=== PATIENT | male | born 1940 | race Caucasian/White ===

== ENCOUNTER 2018-07-10 07:31 | Day surgery (SDC) | payer MEDICARE, SELFPAY ==
[2018-06-05 15:09] VITALS: BMI 27.3
--- NOTE | 2018-06-29 12:28 | EKG12_ITS ---
Test Reason : PRE OP Blood Pressure : / mmHG Vent. Rate : 054 BPM Atrial Rate : 054 BPM P-R Int : 190 ms QRS Dur : 098 ms QT Int : 416 ms P-R-T Axes : 051 031 056 degrees QTc Int : 394 ms Sinus bradycardia Otherwise normal ECG Confirmed by LINDA ALEMAN, JEWELS ([id number]), proposal editor NOEL WALLACE ([id number]) on 07/03/2018 10:13:35 AM Referred By: Jordi Greenberg Confirmed By:JEWELS MCKEON MD
[2018-06-29 12:48] LABS: Hematocrit 39.8 % (40-54); Hemoglobin 12.9 g/dl (13.0-16.5); Mean Corp Hgb Conc 32.4 g/gl (32-36); Mean Corpuscular Hgb 30.6 pg (27.0-32.0); Mean Corpuscular Volume 94.5 fL (80-94); Mean Platelet Vol. 10.9 fl (6.2-12.0); Platelet Count 215 K/mm3 (150-450); RBC Distribution Width CV 13.2 % (11.6-14.6); RBC Distribution Width SD 45.7 fl (35.1-43.9); Red Blood Count 4.21 M/mm3 (4.6-6.2); White Blood Count 6.1 K/mm3 (4.4-11.0)
[2018-06-29 12:54] LABS: Scan Indicated on CBC? Y/N NO
[2018-06-29 13:11] LABS: Anion Gap 9 (5-15); BUN 17 mg/dL (7-18); BUN/Creat Ratio 11.6 RATIO (10-20); Calcium,Total 9.3 mg/dL (8.5-10.1); Chloride 105 mmol/L (98-107); Creatinine, Serum 1.47 mg/dL (0.70-1.30); EST Glomerular Filtration Rate 50 mL/min (>60); Est Glom Filt Rate - Afr Amer 60 mL/min (>60); Glucose 94 mg/dL (74-106); Potassium 4.5 mmol/L (3.5-5.1); Sodium Level 141 mmol/L (136-145)
[2018-07-10 07:58] VITALS: BP 150/84; PULSE 66; RESP 18; TEMP 37.1; O2SAT 100; BMI 27.3
[2018-07-10] MEDS: Cefazolin 2 GM in 0.9% Normal Saline 100 ML IV (10:15)
[2018-07-10] MEDS: Bupiv/Epi 0.5% Mpf 30 ML Vial (10:40)
--- NOTE | 2018-07-10 11:13 | PCM.IMDPSTOP ---
Immediate Post-Op Note Date of Procedure: 07/10/18 Primary Surgeon/Physician: Jordi Greenberg, entry level staff accountant: Maisha Beasley Pre-Operative Diagnosis: SAIS, AC Arthrosis, bicipital tendinosus, possible rotator cuff tear left Post-Operative Diagnosis: SAIS, AC Arthrosisis, bicipital tendinopathy, less than 25% undersurface rotator cuff tear left Surgery/Procedure Performed:: ASD, Muford procedure and biceps tenotomy Description of Surgical Findings:: see op note Estimated Blood Loss: minimal Specimen's removed: none Type of Anesthesia:: General/Regional ASA Class: ASA2 Mod Systematic Disease - Admit VTE Documentation VTE Present on Admission: No VTE Mechan Device Prophylaxis: SCD's, Thigh High MINDI Hose VTE Pharm Prophylaxis ordered?: No Reason prophylaxis not ordered:: Treatment Not Indicated
--- NOTE | 2018-07-10 11:16 | OP.PN_ITS ---
Immediate Post-Op Note Date of Procedure: 07/10/18 Primary Surgeon/Physician: Jordi Greenberg, electric trucker: Maisha Beasley Pre-Operative Diagnosis: SAIS, AC Arthrosis, bicipital tendinosus, possible rotator cuff tear left Post-Operative Diagnosis: SAIS, AC Arthrosisis, bicipital tendinopathy, less than 25% undersurface rotator cuff tear left Surgery/Procedure Performed:: ASD, Muford procedure and biceps tenotomy Description of Surgical Findings:: see op note Estimated Blood Loss: minimal Specimen's removed: none Type of Anesthesia:: General/Regional ASA Class: ASA2 Mod Systematic Disease - Admit VTE Documentation VTE Present on Admission: No VTE Mechan Device Prophylaxis: SCD's, Thigh High MINDI Hose VTE Pharm Prophylaxis ordered?: No Reason prophylaxis not ordered:: Treatment Not Indicated
[2018-07-10 11:28] VITALS: BP 150/84; BP 171/94; PULSE 75; RESP 16; TEMP 36.1; O2SAT 97
[2018-07-10 11:31] VITALS: BP 150/84; BP 167/89; PULSE 74; RESP 18; O2SAT 96
[2018-07-10 11:45] VITALS: BP 150/84; BP 176/88; PULSE 75; RESP 16; O2SAT 99
[2018-07-10 11:56] VITALS: BP 150/84; BP 169/93; PULSE 75; RESP 18; TEMP 36.3; O2SAT 95
[2018-07-10] MEDS: Ketorolac 15 MG/ML Vial IV (12:11)
[2018-07-10] MEDS: traMADol 50 MG Tablet 100 MG PO (12:24)
--- NOTE | 2018-07-10 12:58 | PCM.OP.BLANK ---
Operative Report Date of Procedure: 07/10/18 Primary Surgeon/Physician: Jordi Greenberg exhaust emissions inspector: NETTA Arreguin exhaust emissions inspector: Pre-Operative Diagnosis: SAIS, AC arthrosis, bicipital tendinopathy with possible rotator cuff tear left shoulder Post-Operative Diagnosis: Same with less than 20% undersurface rotator cuff tear Surgery/Procedure Performed: ASD, Huma, biceps tenotomy left shoulder Estimated Blood Loss: minimal Specimen's Removed: none Type of Anesthesia: General and regional ASA Class: 2 Implants: [] Surgical Indications: [ ] Procedure Description: Patient was greeted in the preoperative area. Their [left ] shoulder was marked with surgical marker. Preoperative antibiotics were administered. The patient was then taken to the operating suite in a stable condition. After adequate anesthesia was obtained and it was secured there placed in standard beachchair position. All bony prominences were well-padded her head was secured in a beachchair positioner. The arm was then prepped and draped in the usual sterile fashion. Surgical timeout was performed surgery was commenced. Standard posterior viewing portal was made and 30? arthroscope was introduced into the glenohumeral joint. Anterior portal was made under direct visualization. Extensive debridement of the anterior capsule was performed evaluation of the shoulder itself was performed with the following findings: [There was severe tendinopathy of the biceps tendon. The rotator cuff was intact with a less then 20% undersurface delamination. A shaver was used through the anterior portal to perform a biceps tenotomy. The humeral head and glenoid were in good condition without significant arthrosis. ]. The subacromial space was then entered and extensive debridement of the subacromial bursa was performed. The undersurface of the acromion was then debrided with a thermal wand. This did reveal a type II acromion. Subacromial decompression was then performed with a arthroscopic bur from anterolateral posteromedial to create a type I acromion. When this was complete the wand was then utilized to debride the acromioclavicular joint. A distal clavicle resection was then performed removing approximately 5 mm of distal clavicle not violating the superior acromioclavicular ligament. This was complete attention was then turned to the rotator cuff [The rotator cuff was noted to be intact from the bursal surface ]. At this point the arthroscopy instruments ans fluid were removed and the arthroscopy portal wounds were closed with interrupted sutures of 4-0 nylon. A sterile dressing and sling were applied. The patient was extubated and sent to PACU in stable condition.
[2018-07-10 13:25] VITALS: BP 150/84
--- OUTSIDE RECORDS SUMMARY | 2018-09-11 15:11 | XMS RPT_ITS ---
:1940 Author Organization [facility] Care Team Providers Name Role Phone Benja Quesada Attending Unavailable Aga Sylvester Referring Unavailable Jordi Greenberg Attending Unavailable Jordi Greenberg Referring Unavailable Aga Sylvester CARDROOM MANAGER-[facility] Unavailable Rich Mckeon Attending Unavailable Jordi Greenberg Referring Unavailable PROBLEMS PROBLEMS DATE TYPE CONDITION / CODE ATTENDING STATUS SOURCE 07/14/2018 Unknown R00.1 - Rich Mckeon Active [place] Bradycardia, Community unspecified / Hospital R00.1(ICD-10) Repository 06/06/2018 Unknown L02.212 - CebulBenja Active [place] Cutaneous abscess Community of back [any Hospital part, except Repository buttock] / L02.212(ICD-10) 06/06/2018 Unknown L72.3 - Sebaceous CebulBenja Active [place] cyst / Community L72.3(ICD-10) Hospital Repository PROCEDURES PROCEDURES No Procedure Records FoundRESULTS RESULTS OPERATIVE REPORT Observed: 07/10/2018 Status: F Source: [place] 1:08 PM [facility] HOSPITAL REPOSITORY [facility] Medical Records Department [address] [place] [address] Operative Report 07/10/18 1258 MR#: [id number] Acct: [id number] Name: CHHAYA VILLA Rep #: [id number] : 1940 78 From: Jordi Greenberg DO PCP: Aga Melendrez Status: REG SDC Y Location: [facility] Operative Report Date of Procedure: 07/10/18 Primary Surgeon/Physician: Jordi Greenberg band scroll saw operator: NETTA Arreguin band scroll saw operator: Pre-Operative Diagnosis: SAIS, AC arthrosis, bicipital tendinopathy with possible rotator cuff tear left shoulder Post-Operative Diagnosis: Same with less than 20% undersurface rotator cuff tear Surgery/Procedure Performed: ASD, Huma, biceps tenotomy left shoulder Estimated Blood Loss: minimal Specimen's Removed: none Type of Anesthesia: General and regional ASA Class: 2 Implants: [] Surgical Indications: [ ] Procedure Description: Patient was greeted in the preoperative area. Their [left ] shoulder was marked with surgical marker. Preoperative antibiotics were administered. The patient was then taken to the operating suite in a stable condition. After adequate anesthesia was obtained and it was secured there placed in standard beachchair position. All bony prominences were well-padded her head was secured in a beachchair positioner. The arm was then prepped and draped in the usual sterile fashion. Surgical timeout was performed surgery was commenced. Standard posterior viewing portal was made and 30 arthroscope was introduced into the glenohumeral joint. Anterior portal was made under direct visualization. Extensive debridement of the anterior capsule was performed evaluation of the shoulder itself was performed with the following findings: [There was severe tendinopathy of the biceps tendon. The rotator cuff was intact with a less then 20% undersurface delamination. A shaver was used through the anterior portal to perform a biceps tenotomy. The humeral head and glenoid were in good condition without significant arthrosis. ]. The subacromial space was then entered and extensive debridement of the subacromial bursa was performed. The undersurface of the acromion was then debrided with a thermal wand. This did reveal a type II acromion. Subacromial decompression was then performed with a arthroscopic bur from anterolateral posteromedial to create a type I acromion. When this was complete the wand was then utilized to debride the acromioclavicular joint. A distal clavicle resection was then performed removing approximately 5 mm of distal clavicle not violating the superior acromioclavicular ligament. This was complete attention was then turned to the rotator cuff [The rotator cuff was noted to be intact from the bursal surface ]. At this point the arthroscopy instruments ans fluid were removed and the arthroscopy portal wounds were closed with interrupted sutures of 4-0 nylon. A sterile dressing and sling were applied. The patient was extubated and sent to PACU in stable condition. 07/10/18 1308 <Electronically signed by Jordi Greenberg DO> Date Jordi Greenberg DO CC: Aga SHENC; Jordi Greenberg DO Signed 12 LEAD ELECTROCARDIOGRAM Observed: 07/03/2018 Status: F Source: [place] 10:13 AM [facility] REPOSITORY [facility] Cardiovascular Services [address] [place] [address] [place] [address] 12 Lead EKG 06/29/18 1240 MR#: [id number] Acct: [id number] Name: CHHAYA VILLA Rep #: [id number] : 1940 78 From: Rich Mckeon MD Attending Dr: Jordi Greenberg DO Status: PRE SDC Ordering Dr: Jordi Greenberg DO Date: 06/29/18 Location: [facility] Sex: M C Admitted: Test Reason : PRE OP Blood Pressure : / mmHG Vent. Rate : 054 BPM Atrial Rate : 054 BPM P-R Int : 190 ms QRS Dur : 098 ms QT Int : 416 ms P-R-T Axes : 051 031 056 degrees QTc Int : 394 ms Sinus bradycardia Otherwise normal ECG Confirmed by RICH MCKEON MD ([id number]), clinical editor NOEL WALLACE ([id number]) on 07/03/2018 10:13:35 AM Referred By: Jordi Greenberg Confirmed By:RICH MCKEON MD 07/03/18 1013 Date Rich Mckeon MD CC: Aga PENA; Jordi Greenberg DO Signed CBC-COMPLETE BLOOD CNT Collected: 06/29/2018 Status: F Source: [place] NO DIFF 12:18 PM [facility] REPOSITORY TYPE CODE TESTS RESULT OUT OF RANGE REFERENCE UNITS LAB L100.1000 4.4-11.0 K/mm3 Normal WBC 6.1 LAB L100.1200 4.6-6.2 M/mm3 Low RBC 4.21 LAB L100.1300 13.0-16.5 g/dl Low HGB 12.9 LAB L100.1400 40-54 % Low HCT 39.8 LAB L100.1500 80-94 fL High MCV 94.5 LAB L100.1600 27.0-32.0 pg Normal MCH 30.6 LAB L100.1700 32-36 g/gl Normal MCHC 32.4 LAB L100.1810 11.6-14.6 % Normal RDW CV 13.2 LAB L100.1820 35.1-43.9 fl High RDW SD 45.7 LAB L100.1900 150-450 K/mm3 Normal PLT 215 LAB L100.2000 6.2-12.0 fl Normal MPV 10.9 Performed By: #### L100.0500 #### [facility] [address] [place], [address] BASIC METABOLIC Collected: 06/29/2018 Status: F Source: [place] PROFILE (BMP) 12:18 PM [facility] REPOSITORY TYPE CODE TESTS RESULT OUT OF RANGE REFERENCE UNITS LAB L501.0100 74-106 mg/dL Normal GLU 94 Result Comment: Please note revised GLUCOSE reference range effective 2017. LAB L501.1000 7-18 mg/dL Normal BUN 17 LAB L501.1100 0.70-1.30 mg/dL High CREAT,SERUM 1.47 Result Comment: The validity of the calculated GFR AND GFRAA in patients over 70 years has not been determined. Clinical correlation is essential. LAB L501.1110 >60 mL/min Low EST GFR 50 Result Comment: Non- GFR Calc LAB L501.1115 >60 mL/min Normal EST GFR - AA 60 Result Comment: GFR Calc LAB L501.1300 10-20 RATIO Normal BUN/CRE 11.6 LAB L501.2200 8.5-10.1 mg/dL CA Normal 9.3 LAB L501.5300 136-145 mmol/L NA Normal 141 LAB L501.5600 3.5-5.1 mmol/L K Normal 4.5 LAB L501.5900 98-107 mmol/L CL Normal 105 LAB L501.6100 21.0-32.0 mmol/L Normal CO2 27.0 LAB L501.6200 5-15 Normal GAP 9 Performed By: #### L500.2500 #### [facility] [address] [place], [address] SURGERY VISIT REPORT Observed: 06/05/2018 Status: F Source: [place] 4:50 PM [facility] REPOSITORY [facility] [address] [place] [address] OFFICE VISIT Date of Service: 06/05/18 MR#: [id number] Acct: [id number] Name: CHHAYA VILLA Rep #: [id number] : 1940 Provider: Benja Quesada MD Age/Sex: 77/M Location: [facility] Status: Signed Intake Vital Signs06/05/18 Height 6 ft 1 in 06/05/18 Weight: 207 lb Intake Visit Reasons: CYST R MID-BACK Camp Program Director Required: No Is patient in pain?: No Allergies hydrocodone Allergy (Intermediate, Verified 06/05/18 15:11) anxiety reaction oxycodone Allergy (Intermediate, Verified 06/05/18 15:11) anxiety reaction Medications albuterol sulfate HFA 90 mcg/actuation aerosol inhaler 2 puff INHALATION Q6H PRN 06/05/18 [History Confirmed 06/05/18] fluticasone 220 mcg/actuation HFA aerosol inhaler 1 puff INHALATION BID 06/05/18 [History Confirmed 06/05/18] tadalafil 10 mg tablet 10 mg PO DAILY PRN 06/05/18 [History Confirmed 06/05/18] PFSH Medical History Sebaceous cyst (Acute) Sebaceous cyst (Acute) Surgical History History of colonoscopy (Acute) History of laparoscopic cholecystectomy (Acute) History of left hip replacement (Acute) History of left knee replacement (Acute) History of right hip replacement (Acute) History of right knee joint replacement (Acute) Family History Mother Asthma Father Cancer Leukemia Social History Smoking Status: Former smoker alcohol intake: current alcohol intake frequency: 0-2 drinks per day details: scotch/soda every evening substance use type: does not use HPI HPI HPI: CHHAYA VILLA, is a 77 M who presents to the office today for surgical consultation regarding infected sebaceous cyst right mid back. After review of the situation despite appropriate antibiotic therapy the patient appears to have persistent infection. I recommended to him that we incise and drain the area. Please refer to my procedure note. ROS General General: No weight change, appetite, fatigue, colon cancer, breast cancer or weakness HEENT HEENT: No difficulty swallowing, eye injury, eye surgery, swollen glands or hoarseness Endo Endocrine: No thyroid disease, diabetes mellitus, thyroid cancer, Hair loss, heat intolerance or cold intolerance Skin Skin: No rash or changing moles Breast Breast: No left breast lump, right breast lump, nipple discharge, breast pain, abnormal mammogram, abnormal US or breast enlargement Musc Musculoskeletal: Yes arthritis; no back problems, rheumatoid arthritis, gout or joint pain Cardio Cardiovascular: No murmur, pacemaker, heart disease, atrial fibrillation, high blood pressure, heart attack, heart stent, palpitations, shortness of breat with exertion or chest pain Psych Psychiatric: No depression, anxiety or hearing voices Resp Respiratory: No shortness of breath, No sleep apnea, No cough, No COPD, Yes asthma, No emphysema, No wheezing Gastro Gastrointestinal: No abdominal pain, No nausea or vomiting, No diarrhea, No constipation, No blood in stool, No acid reflux, No hemorrhoids, No ulcers, No gallbladder problem, No black,tarry stools Reed Hematologic: No blood thinners, No blood disorders, No bleeding, No anemia, No blood clots Neuro Neurologic: No system reviewed and no additional complaints, except as docu, No as per HPI, No abnormal walking, No abnormal hearing, No abnormal movements, No abnormal speech, No behavioral changes, No burning sensations, No confusion, No seizure-like activity, No unsteadiness, No dizziness, No localized weakness, No frequent falls, No headache(s), No lack of coordination, No loss of vision, No memory loss, No numbness, No other visual disturbances, No radiating pain, No restless legs, No sensory deficit, No fainting, No tingling, No tremor(s), No weakness, No other Exam Chest Breast Palpation: No nipple discharge Cardio Heart Sounds: no murmurs Office Procedures Incision and Drainage Provider Documentation Provider Documentation: Procedure note Incision and drainage of infected sebaceous cyst right mid back Timeout and informed consent was obtained. The patient was taken to procedure room placed prone on the table. He has erythema and tenderness to touch of an infected sebaceous cyst right upper mid back. The cystic area measures approximately 2 cm in diameter. The erythema extends for another couple centimeters. The area was prepped with Betadine. 1% lidocaine mixed 50- 50 with 0.5% Marcaine was used as a local anesthetic. A total of 8 cc was used. A 11 blade was used to make an incision. Using sharp and blunt dissection I was able to identify the cyst lining and with careful dissection was able to sharply excise the vast majority of that lining. I did not see any residual him. The cavity appeared to measure approximately 1.5 x 1 cm. I packed that with 1/4 inch new gauze. I instructed the on removal of the new gauze tomorrow. We applied dry cover dressing. I believe that this will help his area resolve do not feel that additional antibiotic is required at this time. Benja Queasda M.D., F.A.C.S. Alert Brim Curler Alert Billing: Yes Incision and Drainage 27518 Abscess Simp/Single Procedure Time Out Time Out Informed consent given: Yes Consent signed: Yes Time out checklist: patient, procedure, site marked/identified, positioning of patient, supplies available, allergies confirmed, team agrees on procedure Time out staff in room: Yes Time out verified: Yes Time out date: 06/05/18 Time out time: 15:28 Assessment AND Plan Problems 1. Sebaceous cyst L72.3 Plan Findings of an infected sebaceous cyst right upper mid back successfully incised and drained. A new gauze wick will be removed tomorrow. He may shower. I anticipate gradual but hopeful complete resolution. The patient will have an office follow- up in approximately 6-8 weeks time. At this point I have a lower degree of suspicion that he will require a secondary elliptical excision procedure CC: Aga Quesada M.D., F.A.C.S. Orders Orders: Coding Level of Care Code Attention Svetlana Diagnoses Sebaceous cyst L72.3 Additional Codes Incision and Drainage - I AND D: 75687 Abscess Simp/Single (01108) 06/05/18 1650 <Electronically signed by Benja Quesada MD> Date Benja Quesada MD Cosigner Signature: Date (if applicable) CC: Aga Sylvester CARDROOM MANAGER-C ALLERGIES ALLERGIES DATE TYPE / CODE NAME / CODE REACTION SEVERITY SOURCE 06/30/2018 Drug hydrocodone/ anxiety reaction [facility] Allergy/4160 [id number](R Hospital 52787(SNOMED XNORM) Repository CT) 06/30/2018 Drug oxycodone/F0 anxiety reaction [facility] Allergy/4160 [id number](RX Hospital 22656(SNOMED ORM) Repository CT) ENCOUNTERS ENCOUNTERS ADMIT/DISCHARGE ACCOUNT ADMITTING ENCOUNTER LOCATION SOURCE NUMBER CLASS 07/10/2018/ [id number] Ambulatory [place] [facility] 6 [facility] ing:SDCRoom: Repository AC-TBA 06/29/2018 [id number] Ambulatory BMSBuilding:W [place] 8 [facility] Repository 06/05/2018/ [id number] Ambulatory BMSBuilding:B [place] 8 4 [facility] Repository PAYERS PAYERS ENCOUNTER GUARANTOR PAYER SUBSCRIBER SOURCE 07/10/2018 CHHAYA Ahmadi Primary CHH[place]A Daiana [place] [id number] [facility] Community [id number]: Repository [address]Vwb: ([phone] [id number] [phone] () Date:[id number] [address] [place] [id number]: 07/10/2018 Secondary NOT GIVENUNK [place] Insurance:SELF PAY [facility] Number: Effective Repository Date:2018-06-16 06/29/2018 CHHAYA Ahmadi Primary CHHAYA [place] [id number] [facility]: Community ARDEL MEDICAREPolicy [id number] Number: Repository [address]Wcs: [id number] [phone] () Date:[id number] [place], [place] [address]DJ: 06/29/2018 Secondary NOT GIVENUNK [place] Insurance:SELF PAY [facility] Number: Effective Repository Date:2018-06-29 06/05/2018 CHHAYA Ahmadi Primary CHHAYA [place] [id number] [facility]: Community ARDEL MEDICAREPolicy [id number] Number: [place]ository [place] [id number]: [id number] Date:[id number] [address] () [address] [place] [address]EY: 06/05/2018 Secondary NOT GIVENUNK [place] Insurance:SELF PAY [facility] Number: Effective Repository Date:2018-06-02
== END 2018-07-10 13:34 | disposition home or self-care (01) ==
LOC: SDC 07:40 → AC 07:40 → ACINP 10:48
PROVIDERS: Physician Assistant; Family Provider Nurse Practitioner Primary Care; PCP Nurse Practitioner Primary Care; Referring Provider Orthopaedic Surgery; Visit Provider Orthopaedic Surgery
PROC: (CPT 29827; principal; 2018-07-10 09:25)
DX: S46.012D Strain of muscle(s) and tendon(s) of the rotator cuff of left shoulder, subsequent encounter (principal); M19.012 Primary osteoarthritis, left shoulder; J45.909 Unspecified asthma, uncomplicated; Z87.891 Personal history of nicotine dependence
CPT/HCPCS: 01630; 29823; 29824; 64450; 36415; 80048; 85027; 93005; J7120; J2405

== ENCOUNTER 2022-10-19 06:23 | Day surgery (SDC) | payer MEDICARE, SELFPAY ==
[2022-10-19 06:55] VITALS: BP 123/78; PULSE 90; RESP 18; TEMP 36.4; O2SAT 99; BMI 27.0
--- NOTE | 2022-10-19 06:55 | PCM.HP.BLA ---
History and Physical Date of Admission: 10/19/[address] Benja Quesada MD on 09/29/22 at 1056 Intake Chief Complaint: Anemia and Chronic Diarrhea Allergies hydrocodone Adverse Reaction (Intermediate, Verified 09/14/22 14:06) anxiety reactionoxycodone Adverse Reaction (Intermediate, Verified 09/14/22 14:06) anxiety reaction Medications albuterol sulfate 90 mcg/actuation aerosol inhaler (ProAir HFA) 2 puff inhalation Q6H PRN Sob &/Or Wheezing 06/05/18 [History Confirmed 09/14/22] fluticasone propionate 220 mcg/actuation HFA aerosol inhaler (Flovent HFA) 1 puff inhalation BID PRN Sob &/Or Wheezing 06/05/18 [History Confirmed 09/14/22] cholecalciferol (vitamin D3) 25 mcg (1,000 unit) capsule 25 mcg PO DAILY 09/14/22 [History Confirmed 09/14/22] colestipol 5 gram oral packet 5 g PO DAILY 09/14/22 [History Confirmed 09/14/22] escitalopram oxalate 20 mg tablet 20 mg PO DAILY 09/14/22 [History Confirmed 09/14/22] propranolol 40 mg tablet 40 mg PO DAILY 09/14/22 [History Confirmed 09/14/22] tamsulosin 0.4 mg capsule 0.4 mg PO DAILY 09/14/22 [History Confirmed 09/14/22] vitamin B complex 1 cap PO DAILY 09/14/22 [History Confirmed 09/14/22] Assessment and Plan Assessment and Plan (1) Anemia: ?Status:?Acute (2) Chronic diarrhea: ?Status:?Chronic (3) Chronic kidney disease: ?Status:?Chronic Plan September 29, 2022 I now have results from [facility] dated September 21, 2022 a myocardial stress test.? The test was noted to be technically difficult.? Impression was inferior fixed defect possibly representing a prior infarction.? No clear evidence of ischemia.? Normal left ventricular ejection fraction of 65%.? The ECG portion of the exam was negative for ischemia.? The patient did have a hypertensive response to exercise with a maximum blood pressure of 208/104. Benja Quesada M.D., F.A.C.S. 09/29/22 1057 <Electronically signed by Benja Quesada MD> Date Benja Quesada MD cc: ? BECKY Artssepifanio Sylvester ~* Signed Intake Vital Signs ? 09/14/2313:03 Height 6 ft 1 in Weight: 216 lb 2 oz BMI 28.5 BP 162/80 H Blood Pressure Location Rt brachial Position Sitting Respiration 18 Pulse 56 L Pulse Source Monitor Pulse Oximetry (%) 99 Oxygen Delivery Method room air Intake Visit Reasons:?ANEMIA & CHRONIC DIARRHEA Chief Complaint: Anemia and Chronic Diarrhea [employer] Sales[employer] Required: No Accompanied by: Is patient in pain?: No Allergies hydrocodone Adverse Reaction (Intermediate, Verified 09/14/22 14:06) anxiety reactionoxycodone Adverse Reaction (Intermediate, Verified 09/14/22 14:06) anxiety reaction Medications albuterol sulfate 90 mcg/actuation aerosol inhaler (ProAir HFA) 2 puff inhalation Q6H PRN Sob &/Or Wheezing 06/05/18 [History Confirmed 09/14/22] fluticasone propionate 220 mcg/actuation HFA aerosol inhaler (Flovent HFA) 1 puff inhalation BID PRN Sob &/Or Wheezing 06/05/18 [History Confirmed 09/14/22] cholecalciferol (vitamin D3) 25 mcg (1,000 unit) capsule 25 mcg PO DAILY 09/14/22 [History Confirmed 09/14/22] colestipol 5 gram oral packet 5 g PO DAILY 09/14/22 [History Confirmed 09/14/22] escitalopram oxalate 20 mg tablet 20 mg PO DAILY 09/14/22 [History Confirmed 09/14/22] propranolol 40 mg tablet 40 mg PO DAILY 09/14/22 [History Confirmed 09/14/22] tamsulosin 0.4 mg capsule 0.4 mg PO DAILY 09/14/22 [History Confirmed 09/14/22] vitamin B complex 1 cap PO DAILY 09/14/22 [History Confirmed 09/14/22] PFSH Medical History?(Updated 09/14/22 @ 15:[address] Benja Quesada MD) Anemia Anxiety Arthritis Asthma Back problem Chronic diarrhea Chronic kidney disease Fatigue History of colon polyps Hypertension Sebaceous cyst Sebaceous cyst Surgical History? History of colonoscopy History of laparoscopic cholecystectomy History of left hip replacement History of left knee replacement History of right hip replacement History of right knee joint replacement Family History?(Updated 09/14/22 @ 14:02 by Hannah Persaud) Mother Asthma DiabetesFather Cancer ?? ? LeukemiaAunt Diabetes Social History? Smoking Status:? Former smoker alcohol intake:? current alcohol intake frequency: 0-2 drinks per day details:? scotch/soda every evening substance use type:? does not use HPI HPI HPI: 82-year-old gentleman is referred by Aga Sylvester CNP and a written copy of my surgical consult recommendations will return to her.? As of August 25, 2022 the patient had a white blood cell count of 6.5 with a hemoglobin of 12 and hematocrit of 35.1 and a platelet count of 234,000.? Glucose was 84 with a BUN of 33 and a creatinine of 1.77.? Iron level was 111 and ferritin 241.? GFR is 45.? There is concern that the patient has chronic diarrhea postcholecystectomy.? It is controlled with colestipol.? I have previously assisted him on June 25, 2016 with a colonoscopy and removal of a polyp in the mid transverse colon in the mid sigmoid colon.? Extensive diverticular disease of the descending sigmoid colon was identified.? Pathology showed a fragment of colonic mucosa that was polypoid and the secondary was hyperplastic. The patient is being referred because of anemia fatigue and diarrhea.? He thinks the diarrhea dictates back to his cholecystectomy.? He has been treated with colestipol but he finds it very difficult to manage which she is attempted over many years.? States he either continues to have diarrhea or ends up with 3 days of no bowel movement. He did recently 6 weeks ago have COVID-19.? His primary complaint in addition to the diarrhea is fatigue. ROS General General: Yes fatigue; No weight change, appetite, colon cancer, breast cancer or weakness HEENT HEENT: No difficulty swallowing, eye injury, eye surgery, swollen glands or hoarseness Endo Endocrine: No thyroid disease, diabetes mellitus, thyroid cancer, Hair loss, heat intolerance or cold intolerance Skin Skin: No rash or changing moles Breast Breast: No left breast lump, right breast lump, nipple discharge, breast pain, abnormal mammogram, abnormal US or breast enlargement Musc Musculoskeletal: Yes back problems and arthritis; No rheumatoid arthritis, gout or joint pain Cardio Cardiovascular: Yes high blood pressure; No murmur, pacemaker, heart disease, atrial fibrillation, heart attack, heart stent, palpitations, shortness of breat with exertion or chest pain Psych Psychiatric: Yes anxiety; No depression or hearing voices Resp Respiratory: Yes shortness of breath, No sleep apnea, Yes cough, No COPD, Yes asthma, No emphysema and No wheezing Gastro Gastrointestinal: No abdominal pain, Yes nausea or vomiting, Yes diarrhea, No constipation, No blood in stool, No acid reflux, No hemorrhoids, No ulcers, Yes gallbladder problem and No black,tarry stools Reed Hematologic: No blood thinners, No blood disorders, No bleeding, No anemia and No blood clots Neuro Neurologic: No system reviewed and no additional complaints, except as documented, No as per HPI, No abnormal gait, No abnormal hearing, No abnormal movements, No abnormal speech, No behavioral changes, No burning sensations, No confusion, No convulsions, No disequilibrium, No dizziness, No localized weakness, No frequent falls, No headache(s), No lack of coordination, No loss of vision, No memory loss, No numbness, No other visual disturbances, No radicular pain, No restless legs, No sensory deficit, No syncope, No tingling, No tremor(s), No weakness and No other Exam Const General: cooperative, comfortable and no acute distress [facility] Head: normal to inspection Eyes General: appearance normal, both eyes and all related structures Neck Neck: normal visual inspection Chest Chest palpation & inspection: normal inspection of the chest Resp Effort & Inspection: normal respiratory effort Auscultation: clear to auscultation bilaterally Cardio Rate: regular rate Rhythm: regular rhythm GI Palpation: soft and no hepatosplenomegaly Musc Cervical Spine: normal cervical lordosis Skin General: no rashes or lesions noted Neuro General: patient alert and patient awake Extrem General: no calf tenderness Psych Appearance: grossly normal Assessment and Plan Assessment and Plan (1) Anemia: ?Status:?Acute (2) Chronic diarrhea: ?Status:?Chronic (3) Chronic kidney disease: ?Status:?Chronic Plan Etiology of this patient's fatigue and mild anemia difficult to assess.? He has previously had colon polyps.? I do believe that pursuing a esophagogastroduodenoscopy with possible biopsy and colonoscopy with possible random biopsies or polypectomy would be pertinent.? I suppose he could also be aware that this is a long COVID phenomena.? He is had an opportunity ask and have questions answered.? We will schedule and proceed at his discretion.? I appreciate the ongoing opportunity of assisting with the surgical care. Copy:Aga Sylvester NP-C Benja Quesada M.D., F.A.C.S. I have examined the patient and the H&P has been reviewed. There are no clinical changes since date of exam. Benja Quesada M.D., F.A.C.S.
[2022-10-19] MEDS: Lactated Ringers 1,000 ML 15 ML IV (06:59)
--- NOTE | 2022-10-19 07:30 | EGD_PTH ---
PATIENT: CHHAYA VILLA LOC: EN U#:[id number] AGE/SX: 82/M ROOM: RE10/19/[address]: Dr. Benja Quesada MD : 1940 BED: DIS: 10/19/2022 SPEC #: [id number] RECD: 10/19/22 09:38 STATUS: DUSTIN DIOGO #: [id number] MIS: 10/19/22 07:[address]: Benja Quesada DEPT: SURGICAL PATHOLOGY RECD BY: Christy Qureshi ENTERED: 10/19/22 10:30 SP TYPE: EGD BIOPSY OT DR: Aga Sylvester, INSTALLER MOLDING AND TRIM-C Tissues: A - Duodenum, NOS B - Gastric mucous membrane C - Gastric fundus D - Esophagus, NOS E - Esophagus, NOS F - Ascending colon G - COLON BIOPSY H - COLON BIOPSY I - Transverse colon Procedures: Special Stain Group II Surgery Specimen Level IV Alcian Blue/PAS (control) HEADER OPERATION: [place] [place], polypectomy PRE-OP DIAGNOSIS: Anemia, chronic diarrhea, chronic kidney disease TISSUE SUBMITTED: A - Duodenum biopsy, B - Antrum biopsy for histo and H. pylori, C - Fundic polyp biopsy, D - Distal esophagus biopsy, E - Mid esophagus biopsy, F - Mid ascending polyp, G - Random colonic biopsy, H - Hepatic flexure, I - Mid transverse polyp biopsy MICROSCOPIC DIAGNOSIS A. Duodenum, biopsy: Fragments of duodenal mucosa, no pathologic diagnosis. B. Antrum, biopsy: Mild gastritis. See microscopic description and comment. C. Fundic polyp, biopsy: Fundic gland polyp. D. Distal esophagus, biopsy: Fragments of gastroesophageal mucosa with chronic inflammation. Intestinal metaplasia (goblet cell metaplasia) not identified. See comment. E. Mid esophagus, biopsy: A fragment of benign squamous epithelium. F. Mid ascending colon polyp, polypectomy: Fragments of tubular adenoma. G. Colon, random biopsy: Fragments of colonic mucosa, no pathologic diagnosis. H. Hepatic flexure, biopsy: Fragments of tubular adenoma. I. Mid transverse colon polyp, biopsy: Tubular adenoma. SJ:karl 10/20/2022 COMMENT B. The results of immunohistochemistry for Helicobacter pylori will be reported separately ([id number]). D. Alcian blue/PAS stain with matched control is used in the evaluation of the specimen. MICROSCOPIC DESCRIPTION Slides are reviewed. B. The specimen shows fragments of gastric mucosa with chronic inflammatory cell infiltrates in the lamina propria consisting of lymphocytes and plasma cells, consistent with mild chronic gastritis. GROSS DESCRIPTION A - Received in fixative is one container labeled with the patient's name and designated duodenum biopsy. The specimen consists of two irregular fragments of light suggs soft tissue that in aggregate measure 0.6 x 0.2 x 0.1 cm. The specimen is totally submitted in one cassette. B - Received in fixative is one container labeled with the patient's name and designated antrum biopsy. The specimen consists of one irregular fragment of light suggs soft tissue that measures 0.7 x 0.2 x 0.1 cm. The specimen is totally submitted in one cassette. C - Received in fixative is one container labeled with the patient's name and designated fundic polyp biopsy. The specimen consists of one irregular fragment of light suggs soft tissue that measures 0.6 x 0.5 x 0.1 cm. The specimen is totally submitted in one cassette. D - Received in fixative is one container labeled with the patient's name and designated distal esophagus biopsy. The specimen consists of multiple irregular fragments of light suggs soft tissue that in aggregate measure 1 x 0.5 x 0.1 cm. The specimen is totally submitted in one cassette. E - Received in fixative is one container labeled with the patient's name and designated mid esophagus biopsy. The specimen consists of one irregular fragment of light suggs soft tissue that measures 0.7 x 0.5 x <0.1 cm. The specimen is totally submitted in one cassette. F - Received in fixative is one container labeled with the patient's name and designated mid ascending polyp. The specimen consists of multiple irregular fragments of light suggs soft tissue that in aggregate measure 1.0 x 0.6 x 0.1 cm. The specimen is totally submitted in one cassette. G - Received in fixative is one container labeled with the patient's name and designated random colon biopsy. The specimen consists of multiple irregular fragments of light suggs soft tissue that in aggregate measure 1.0 x 1.0 x 0.1 cm. The specimen is totally submitted in one cassette. H - Received in fixative is one container labeled with the patient's name and designated hepatic flexure. The specimen consists of multiple irregular fragments of light suggs soft tissue that in aggregate measure 0.6 x 0.6 x 0.1 cm. The specimen is totally submitted in one cassette. I - Received in fixative is one container labeled with the patient's name and designated mid transverse polyp biopsy. The specimen consists of one irregular fragment of light suggs soft tissue that measures 0.5 x 0.5 x 0.1 cm. The specimen is totally submitted in one cassette. / AM:karl 10/19/2022 TC:1 CPT: 76673 x9, 10086
--- NOTE | 2022-10-19 07:30 | IMM_PTH ---
PATIENT: CHHAYA VILLA LOC: EN U#:[id number] AGE/SX: 82/M ROOM: RE10/19/[address]: Dr. Benja Quesada MD : 1940 BED: DIS: 10/19/2022 SPEC #: [id number] RECD: 10/19/22 11:31 STATUS: DUSTIN REJoel #: [id number] MIS: 10/19/22 07:[address]: Benja Quesada DEPT: IMMUNOHISTOCHEMISTRY RECD BY: Colleen Pleitez ENTERED: 10/19/22 11:31 SP TYPE: IMMUNO OTHR DR: Aga Sylvester, REGISTERED NURSE HH CASE MANAGER-C Tissues: B - Stomach, NOS Procedures: H Pylori (initial) PHYSICIAN & INSTITUTION [place] [id number] SPECIMEN INFORMATION: Tissue Source: B ? Antrum biopsy Clinical Info: Anemia, chronic diarrhea, chronic kidney disease Specimen Number: [id number] CPT code: 22520 METHODOLOGY: Deparaffinized sections of prefer/formalin-fixed tissue or PAP/DQ stained slides are incubated with monoclonal/polyclonal antibodies/oligonucleotide probes. Localization is made via biotin free immunoperoxidase method. Appropriate controls are performed and reacted as expected. Results on target cell population are indicated in the following table: RESULTS: ANTIBODY / CLONE RESULT Block B H Pylori (polyclonal) negative These tests were developed and their performance characteristics determined by [facility]. They may not have been cleared or approved by the U.S. Food and Drug Administration. The FDA has determined that such clearance or approval is not necessary. The above immunohistochemical/dualISH markers are ordered and reviewed by the Pathologist. INTERPRETATION: B. Antrum, biopsy: Negative for Helicobacter pylori organisms. SJ:karl 10/20/2022
[2022-10-19 08:30] VITALS: BP 114/68; BP 123/78; PULSE 82; RESP 18; TEMP 36.4; O2SAT 98
--- NOTE | 2022-10-19 08:34 | OP.CCLET_ITS ---
10/19/2022 Aga Sylvester Re : Upper GI endoscopy procedure for Massimo Dixon Dear Higinio This procedure was performed on Wednesday, October 19, 2022. My impressions and recommendations are as follows: Impressions : - Reflux esophagitis. Biopsied. - Normal mid esophagus. Biopsied. - Small hiatal hernia. - Chronic gastritis. Biopsied. - A few gastric polyps. Resected and retrieved. - Erythematous duodenopathy. Biopsied. Recommendations : - Discharge patient to home. - Resume previous diet. - Continue present medications. - Use Prilosec (omeprazole) 20 mg PO daily. My findings are described in the full procedure note, which is enclosed. If I can be of further assistance, please feel free to contact me at Doctor phone number(s): Work: . Sincerely, Benja Quesada MD 10/19/2022 8:33:42 AM This report has been signed electronically.
--- NOTE | 2022-10-19 08:34 | OP.EGD_ITS ---
Patient Name: Massimo Dixon Procedure Date: 10/19/2022 7:52 AM Date of : 1940 Age: 82 Procedure: Upper GI endoscopy Indications: Iron deficiency anemia Providers: Benja Quesada MD Referring MD: Benja Quesada MD Medicines: See the Anesthesia note for documentation of the administered medications Complications: No immediate complications. Procedure: Pre-Anesthesia Assessment: - Prior to the procedure, a History and Physical was performed, and patient medications and allergies were reviewed. The patient's tolerance of previous anesthesia was also reviewed. The risks and benefits of the procedure and the sedation options and risks were discussed with the patient. All questions were answered, and informed consent was obtained. Prior Anticoagulants: The patient has taken no previous anticoagulant or antiplatelet agents. ASA Grade Assessment: II - A patient with mild systemic disease. After reviewing the risks and benefits, the patient was deemed in satisfactory condition to undergo the procedure. After obtaining informed consent, the endoscope was passed under direct vision. Throughout the procedure, the patient's blood pressure, pulse, and oxygen saturations were monitored continuously. The gastroscope was introduced through the mouth, and advanced to the second part of duodenum. The upper GI endoscopy was accomplished without difficulty. The patient tolerated the procedure well. Scope In: 7:56:47 AM Scope Out: 8:04:51 AM Total Procedure Duration Time 0 hours 8 minutes 4 seconds Findings: Esophagitis with no bleeding was found 41 cm from the incisors. Biopsies were taken with a cold forceps for histology. The mid esophagus was normal. Biopsies were taken with a cold forceps for histology. A small hiatal hernia was present. Diffuse mild inflammation characterized by erythema was found in the gastric antrum. Biopsies were taken with a cold forceps for histology. A few sessile polyps with no bleeding and no stigmata of recent bleeding were found in the gastric fundus. The polyp was removed with a cold biopsy forceps. Resection and retrieval were complete. Diffuse mildly erythematous mucosa without active bleeding and with no stigmata of bleeding was found in the duodenal bulb. Biopsies were taken with a cold forceps for histology. Impression: - Reflux esophagitis. Biopsied. - Normal mid esophagus. Biopsied. - Small hiatal hernia. - Chronic gastritis. Biopsied. - A few gastric polyps. Resected and retrieved. - Erythematous duodenopathy. Biopsied. Recommendation: - Discharge patient to home. - Resume previous diet. - Continue present medications. - Use Prilosec (omeprazole) 20 mg PO daily. Procedure Code(s): --- Professional --- 53694, Esophagogastroduodenoscopy, flexible, transoral; with biopsy, single or multiple Diagnosis Code(s): --- Professional --- K21.0, Gastro-esophageal reflux disease with esophagitis K44.9, Diaphragmatic hernia without obstruction or gangrene K29.50, Unspecified chronic gastritis without bleeding K31.7, Polyp of stomach and duodenum K31.89, Other diseases of stomach and duodenum D50.9, Iron deficiency anemia, unspecified CPT copyright 2017 [employer]. All rights reserved. The codes documented in this report are preliminary and upon employment consultant review may be revised to meet current compliance requirements. Benja Quesada MD 10/19/2022 8:33:42 AM This report has been signed electronically. Number of Addenda: 0 Note Initiated On: 10/19/2022 7:52 AM
[2022-10-19 08:35] VITALS: BP 123/78; BP 97/52; PULSE 93; RESP 18; O2SAT 100
[2022-10-19 08:40] VITALS: BP 110/75; BP 123/78; PULSE 95; RESP 18; O2SAT 97
--- NOTE | 2022-10-19 08:40 | OP.COLON_ITS ---
Patient Name: Massimo Dixon Procedure Date: 10/19/2022 8:05 AM Date of : 1940 Age: 82 Procedure: Colonoscopy Indications: High risk colon cancer surveillance: Personal history of colonic polyps Providers: Benja Quesada MD Referring MD: Benja Quesada MD Medicines: See the Anesthesia note for documentation of the administered medications Patient Profile: Last Colonoscopy: June 2016. Complications: No immediate complications. Procedure: Pre-Anesthesia Assessment: - Prior to the procedure, a History and Physical was performed, and patient medications and allergies were reviewed. The patient's tolerance of previous anesthesia was also reviewed. The risks and benefits of the procedure and the sedation options and risks were discussed with the patient. All questions were answered, and informed consent was obtained. Prior Anticoagulants: The patient has taken no previous anticoagulant or antiplatelet agents. ASA Grade Assessment: II - A patient with mild systemic disease. After reviewing the risks and benefits, the patient was deemed in satisfactory condition to undergo the procedure. After I obtained informed consent, the scope was passed under direct vision. Throughout the procedure, the patient's blood pressure, pulse, and oxygen saturations were monitored continuously. The adult colonoscope was introduced through the anus and advanced to the cecum, identified by appendiceal orifice and ileocecal valve. The colonoscopy was performed without difficulty. The patient tolerated the procedure well. The quality of the bowel preparation was good. The ileocecal valve and the appendiceal orifice were photographed. Scope In: 8:07:54 AM Scope Withdrawal Time 0 hours 12 minutes 53 seconds Scope Out: 8:25:06 AM Total Procedure Duration Time 0 hours 17 minutes 12 seconds Findings: Hemorrhoids were found on perianal exam. A 10 mm polyp was found in the mid ascending colon. The polyp was sessile. The polyp was removed with a hot snare. Resection and retrieval were complete. To prevent bleeding post-intervention, one hemostatic clip was successfully placed. There was no bleeding at the end of the procedure. A 7 mm polyp was found in the hepatic flexure. The polyp was sessile. The polyp was removed with a hot snare. Resection and retrieval were complete. A 4 mm polyp was found in the mid transverse colon. The polyp was sessile. The polyp was removed with a cold biopsy forceps. Resection and retrieval were complete. Multiple diverticula were found in the sigmoid colon. Biopsies for histology were taken with a cold forceps from the entire colon for evaluation of microscopic colitis. Impression: - Hemorrhoids found on perianal exam. - One 10 mm polyp in the mid ascending colon, removed with a hot snare. Resected and retrieved. Clip was placed. - One 7 mm polyp at the hepatic flexure, removed with a hot snare. Resected and retrieved. - One 4 mm polyp in the mid transverse colon, removed with a cold biopsy forceps. Resected and retrieved. - Diverticulosis in the sigmoid colon. - Biopsies were taken with a cold forceps from the entire colon for evaluation of microscopic colitis. Recommendation: - Discharge patient to home. - Resume previous diet. - Continue present medications. - Repeat colonoscopy in 5 years for surveillance based on pathology results. - Telephone my office for pathology results in 1 week. Procedure Code(s): --- Professional --- 25158, Colonoscopy, flexible; with removal of tumor(s), polyp(s), or other lesion(s) by snare technique 44377, 59, Colonoscopy, flexible; with biopsy, single or multiple Diagnosis Code(s): --- Professional --- Z86.010, Personal history of colonic polyps K64.9, Unspecified hemorrhoids D12.2, Benign neoplasm of ascending colon D12.3, Benign neoplasm of transverse colon (hepatic flexure or splenic flexure) K57.30, Diverticulosis of large intestine without perforation or abscess without bleeding CPT copyright 2017 [employer]. All rights reserved. The codes documented in this report are preliminary and upon car seat maker review may be revised to meet current compliance requirements. Benja Quesada MD 10/19/2022 8:40:23 AM This report has been signed electronically. Number of Addenda: 0 Note Initiated On: 10/19/2022 8:05 AM
--- NOTE | 2022-10-19 08:41 | OP.CCLET_ITS ---
10/19/2022 gAa Sylvester Re : Colonoscopy procedure for Massimo Dixon Dear Higinio This procedure was performed on Wednesday, October 19, 2022. My impressions and recommendations are as follows: Impressions : - Hemorrhoids found on perianal exam. - One 10 mm polyp in the mid ascending colon, removed with a hot snare. Resected and retrieved. Clip was placed. - One 7 mm polyp at the hepatic flexure, removed with a hot snare. Resected and retrieved. - One 4 mm polyp in the mid transverse colon, removed with a cold biopsy forceps. Resected and retrieved. - Diverticulosis in the sigmoid colon. - Biopsies were taken with a cold forceps from the entire colon for evaluation of microscopic colitis. Recommendations : - Discharge patient to home. - Resume previous diet. - Continue present medications. - Repeat colonoscopy in 5 years for surveillance based on pathology results. - Telephone my office for pathology results in 1 week. My findings are described in the full procedure note, which is enclosed. If I can be of further assistance, please feel free to contact me at Doctor phone number(s): Work: . Sincerely, Benja Quesada MD 10/19/2022 8:40:23 AM This report has been signed electronically.
[2022-10-19 08:45] VITALS: BP 106/79; BP 123/78; PULSE 93; RESP 18; TEMP 36.4; O2SAT 99
== END 2022-10-19 09:24 | disposition home or self-care (01) ==
LOC: EN 06:23 → AC 06:27
PROVIDERS: PCP Nurse Practitioner Primary Care; Referring Provider Nurse Practitioner Primary Care; Visit Provider Surgery
PROC: 0DJD8ZZ Inspection of Lower Intestinal Tract, Via Natural or Artificial Opening Endoscopic (ICD-10-PCS; CPT 45378; principal; 2022-10-19 07:25)
DX: Z12.11 Encounter for screening for malignant neoplasm of colon (principal); K52.9 Noninfective gastroenteritis and colitis, unspecified; K64.9 Unspecified hemorrhoids; K21.00 Gastro-esophageal reflux disease with esophagitis, without bleeding; K29.50 Unspecified chronic gastritis without bleeding; K57.30 Diverticulosis of large intestine without perforation or abscess without bleeding; K44.9 Diaphragmatic hernia without obstruction or gangrene; Z87.891 Personal history of nicotine dependence; N18.9 Chronic kidney disease, unspecified; Z86.010 Personal history of colon polyps; Z86.16 Personal history of COVID-19; D50.9 Iron deficiency anemia, unspecified; K31.7 Polyp of stomach and duodenum; D12.2 Benign neoplasm of ascending colon; D12.3 Benign neoplasm of transverse colon
CPT/HCPCS: 45385; 43239; 45380; 88305; 88313; 88342; J7120; J2405

== ENCOUNTER 2024-04-16 10:25 | Inpatient (IN) | payer MEDICARE, SELFPAY ==
[2024-04-16] VITALS (11 sets, daily range): BP systolic 126–139; BP diastolic 74–87; PULSE 92–106; RESP 18–28; TEMP 36.1–37; O2SAT 94–100; BMI 26.9; BMI 26.8
--- NOTE | 2024-04-16 11:00 | EKG12_ITS ---
Test Reason : SOB Blood Pressure : / mmHG Vent. Rate : 098 BPM Atrial Rate : 098 BPM P-R Int : 180 ms QRS Dur : 094 ms QT Int : 340 ms P-R-T Axes : 070 019 056 degrees QTc Int : 434 ms Normal sinus rhythm Inferior infarct , age undetermined Abnormal ECG Confirmed by LINDA ALEMAN, JEWELS ([id number]), script editor CARLOS SLAUGHTER ([id number]) on 04/17/2024 7:55:36 AM Referred By: Confirmed By:JEWELS MCKEON MD
--- NOTE | 2024-04-16 11:01 | ED.VIS.DYS ---
HPI History of Present Illness Chief Complaint: Shortness of Breath Informant: patient and spouse/S.O. Narrative Narrative: 83-year-old male presenting to the emergency room with dyspnea. Patient states over the the past 2 weeks he has been experiencing a different type of dyspnea than he had been experiencing which led to a diagnosis of COPD. He notes dyspnea on exertion. He states that he has a pain in the right lateral lower chest. It is worse with inspiration and with movements. He denies any recent trauma or anything that would have injured the chest wall. He notes nocturnal urinary frequency and small amounts for which she has been seeing urology and states that he is been placed on a medication to help shrink his prostate but not to expect symptom improvement for several months. The patient denies any prior issue with thromboembolism. I do see in the computer he was diagnosed with DVT in the past. He has a history of chronic kidney disease and anemia. He states that he is more fatigued than normal. He states that he cannot find a position of comfort at night to help him sleep. No reported fevers. [facility] Medical History Moderate COPD (chronic obstructive pulmonary disease) Abnormal stress test Essential hypertension Wears glasses Cancer Anxiety Alcohol use Prostate disease History of renal disease Low iron DVT (deep venous thrombosis) Easy bruising Essential tremor Blackout Diarrhea Abdominal bloating Former smoker Shortness of breath on exertion Hoarseness Leg cramps History of edema History of stress test History of rheumatic fever Asthma Hypertension Arthritis Fatigue Anemia Chronic kidney disease History of colon polyps Chronic diarrhea Sebaceous cyst Home Medications ?Medication ?Instructions ?Recorded ?Last Taken ?Type albuterol sulfate 90 mcg/actuation 2 puff inhalation Q6H PRN Sob &/Or 06/05/18 04/13/24 History aerosol inhaler (ProAir HFA) Wheezing tamsulosin 0.4 mg capsule 0.4 mg PO QHS 09/14/22 04/16/24 History vitamin B complex 1 cap PO DAILY 09/14/22 04/15/24 History cholecalciferol (vitamin D3) 25 50 mcg PO DAILY 10/28/22 04/15/24 History mcg (1,000 unit) capsule hydroxyzine HCl 50 mg tablet 50 mg PO Q6H PRN anxiety 03/14/23 04/15/24 History ferrous fumarate 324 mg (106 mg 324 mg PO DAILY #90 tabs 03/05/24 04/15/24 Rx iron) tablet albuterol sulfate 2.5 mg/3 mL 2.5 mg inhalation 4X/DAY PRN PRN 04/16/24 04/15/24 History (0.083 %) solution for nebulization wheezing bupropion HCl 150 mg 24 hr tablet, 150 mg PO DAILY 04/16/24 04/16/24 History extended release buspirone 15 mg tablet 15 mg PO BID 04/16/24 04/16/24 History finasteride 5 mg tablet 5 mg PO DAILY 04/16/24 04/15/24 History fluticasone propionate 110 2 puff inhalation BID 04/16/24 04/16/24 History mcg/actuation HFA aerosol inhaler Allergy/AdvReac Type Severity Reaction Status Date / Time hydrocodone AdvReac Intermediate anxiety Verified 04/16/24 10:30 reaction oxycodone AdvReac Intermediate anxiety Verified 04/16/24 10:30 reaction Family History Mother Asthma Diabetes Father Cancer Leukemia Aunt Diabetes Surgical History Hx of ligation of vein History of esophagogastroduodenoscopy (EGD) Hx of right cataract extraction Hx of left cataract extraction Hx of shoulder surgery History of colonoscopy History of laparoscopic cholecystectomy History of left knee replacement History of left hip replacement History of right hip replacement History of right knee joint replacement Social History Smoking Status: Former smoker alcohol intake: current alcohol intake frequency: 0-2 drinks per day details: scotch/soda every evening substance use type: does not use ROS ROS ED Constitutional Constitutional ED: Reports fever(s); Denies chills or weight loss Eyes Eyes: Denies blurry vision, change in vision or diplopia ENT ENT ED: Denies ear pain, rhinorrhea or sore throat Cardiovascular Cardiovascular: Reports chest pain; Denies orthopnea, palpitations or racing heartbeat Respiratory/Chest Respiratory/Chest: Reports dyspnea and dyspnea on exertion; Denies cough or orthopnea Gastrointestinal Gastrointestinal: Denies abdominal pain, diarrhea, nausea or vomiting Genitourinary Genitourinary ED: Reports other Details: Nocturnal urinary frequency ; Denies dysuria or hematuria Musculoskeletal Musculoskeletal: Denies arthralgias or myalgias Integumentary Denies abscess or rash Neurologic Neurologic: Denies headache(s) or weakness Psychiatric Psychiatric: Denies anxiety, depression, suicidal ideation or suicidal thoughts Endocrine Endocrinology: Denies polydipsia, polyphagia or polyuria Allergic/Immunologic Allergic/Immunologic ED: Denies mouth swelling, tongue swelling or urticaria EXAM Physical Exam Const Vital Signs: 04/16/24 10:26 04/16/24 10:48 04/16/24 11:30 Temperature 97.6 F L 97.6 F L Temperature Source Oral Temporal Pulse Rate 106 H 97 Respiratory Rate 22 H 28 H Respiratory Effort Short of Breath Respiratory Depth Normal Respiratory Pattern Hyperpnea Blood Pressure 133/76 H 133/74 H Blood Pressure Mean 95 93 Pulse Ox 97 98 Oxygen Delivery Method Room Air Room Air Room Air 04/16/24 12:00 04/16/24 13:00 04/16/24 13:38 Temperature 97.6 F L 98 F 98 F Temperature Source Temporal Temporal Pulse Rate 92 102 H 102 H Respiratory Rate 22 H 26 H 26 H Respiratory Effort Respiratory Depth Respiratory Pattern Blood Pressure 132/86 H 126/87 H 126/87 H Blood Pressure Mean 101 100 100 Pulse Ox 95 98 98 Oxygen Delivery Method Room Air Positive well nourished and well developed General Appearance ED: well developed and NAD HEENT Reports normocephalic, head/scalp atraumatic and moist mucous membranes Eyes PERRL and EOMs intact bilaterally Neck no lymphadenopathy, supple and no JVD Chest Wall Chest Narrative: Patient notes mild tenderness to palpation mid axillary lower right chest wall. Resp normal respiratory effort and clear to auscultation bilaterally Cardio regular rate, regular rhythm and no murmurs Rate: tachycardic GI Palpation: soft and tender RUQ; Negative for guarding or rebound tenderness present Back/Spine no CVA tenderness Back/Spine Narrative: Painful range of motion I ask him sit up but he then holds his right side stating that that is the area that hurts Extremity normal to inspection General Extremety ED: Negative for edema General Extremity: Negative for edema Neuro oriented x3 and CN's II-XII intact bilaterally Sensorium / Orientation: alert Motor Exam: strength 5/5 throughout Psych mental status grossly normal Mood & Affect: Negative for depressed or tearful Skin no rashes or lesions noted and no wounds MDM MDM MDM Narrative Medical decision making narrative: Differential diagnosis includes but not limited to pulmonary embolism pleural effusion pneumonia pneumothorax acute coronary syndrome congestive heart failure chest wall pain anemia subdiaphragmatic causes such as liver inflammation renal disease White count elevated 17.7 hemoglobin 12.3 sodium 129 INR is 1.5 PTT 33 patient does have elevation of his liver enzymes total bilirubin 1.2 direct bilirubin 0.55 AST of 319 ALT 591 alk phos 390 troponin is elevated to 20 lipase normal at 54. My independent interpretation the chest x-ray is no acute process. Because of the patient's dyspnea prior history of DVT and tachypnea the location of his pain a CTA of the chest was obtained. This is positive for bilateral pulmonary embolism. Of note there was concern for liver metastasis. A CT of the abdomen pelvis had been ordered at the same time given the elevated LFTs and location of his pain. This is concerning for possible pancreatic mass with liver metastasis. Patient was placed on a heparin drip. Patient and his were updated. The patient's primary care doctor was notified and hospitalist was called. History & Record Review Discussion w/independent historian: Patient Lab Data Attestation: I reviewed the patient's lab results. Labs: Laboratory Results - last 24 hr 04/16/24 04/16/24 10:49 13:25 WBC 17.7 H RBC 4.05 L Hgb 12.3 L Hct 36.8 L MCV 90.9 MCH 30.4 MCHC 33.4 RDW Std Deviation 42.0 RDW Coeff of Moni 12.6 Plt Count 148 L MPV 10.5 Immature Gran % (Auto) 2.500 H Neut % (Auto) 72.9 H Lymph % (Auto) 8.9 L Colbert % (Auto) 15.1 H Eos % (Auto) 0.3 Baso % (Auto) 0.3 Absolute Neuts (auto) 12.9 H Absolute Lymphs (auto) 1.57 Nucleated RBC % 0 Differential Comment SCANNED Diff Path Review May foll Platelet Estimate ADEQUATE RBC Morphology NORM C+C PT 18.0 H INR 1.5 APTT 33.0 Sodium 129 L Potassium 4.6 Chloride 98 Carbon Dioxide 23.0 Anion Gap 8 BUN 33 H Creatinine 2.04 H Estim Creat Clear Calc 32.09 Est GFR (MDRD) Af Amer 40 L Est GFR (MDRD) Non-Af 33 L BUN/Creatinine Ratio 16.2 Glucose 114 H Calcium 9.1 Total Bilirubin 1.20 H Direct Bilirubin 0.55 H AST 319 H ALT 591 H Alkaline Phosphatase 390 H Troponin I High Sens 220 H* B-Natriuretic Peptide 36.4 Total Protein 6.8 Albumin 3.0 L Globulin 3.8 Lipase 54 Radiography Diagnostic Testing: Clinical Impression(s) from Imaging Studies Chest X-Ray 04/16/24 11:05 IMPRESSION: Hyperinflation. No acute abnormality is seen. Electronically Signed: Aashish Bonilla MD at 11:36 EDT , Abdomen/Pelvis CT 04/16/24 11:41 IMPRESSION: Hepatomegaly and multiple hypodense nodules in both lobes of the liver suggestive of metastasis. Heterogeneous appearance of the pancreas with possible mass in the body of the pancreas as described. Electronically Signed: Aashish Bonilla MD at 13:23 EDT , Chest CTA 04/16/24 11:41 IMPRESSION: Bilateral pulmonary emboli more prominent in the right lung. Multiple hypodense nodules in the liver as described. Metastatic deposits should be ruled out. Electronically Signed: Aashish Bonilla MD at 12:58 EDT , EKG Initial EKG: Attestation: I personally reviewed and interpreted this EKG as follows: Comments: Normal sinus rhythm ventricular rate of [address] segments are noted. Management Discussion w/another healthcare provider: Hospitalist (Dr. Donaldson) and PCP (Dr. Suarez) Discharge Plan Dx/Rx/DC Orders Clinical Impression: Pulmonary embolism, Non-ST elevation MS (NSTEMI), Metastasis to liver Disposition Disposition: Acute Care Hospital [facility] Discharge Date/Time: 04/16/24 14:29
--- NOTE | 2024-04-16 11:05 | RAD_ITS ---
STUDY: X-RAY CHEST REASON FOR EXAM: Male, 83 years old. Dyspnea TECHNIQUE: Single AP portable view of the chest. COMPARISON: None. FINDINGS: EKG electrodes are seen. There is hyperinflation of the lungs consistent with chronic obstructive lung disease (COPD). There is no demonstrated pleural abnormality. Normal size heart. Normal mediastinum and don. Normal visualized pulmonary arteries. Normal visualized aortic arch and descending thoracic aorta. There are degenerative changes of the visualized thoracic spine. There is degenerative osteoarthritis of the bilateral shoulders. There is no demonstrated abnormality of the visualized soft tissue structures of the upper abdomen. RAD/Chest 1 View (Portable) IMPRESSION: Hyperinflation. No acute abnormality is seen. Electronically Signed: Aashish Bonilla MD at 11:36 EDT ,
[2024-04-16 11:06] LABS: Absolute Lymphocyte Count 1.57 X10^3/uL (0.83-4.51); Absolute Neutrophil Count 12.9 X10^3/uL (2.0-7.7); Basophil# 0.05 X10^3/uL; Basophil% 0.3 % (0-1); Eosinophil# 0.05 X10^3/uL; Eosinophils% 0.3 % (0-5); Hematocrit 36.8 % (40-54); Hemoglobin 12.3 g/dL (13.0-16.5); Lymphocyte # 1.57 X10^3/ul (0.83-4.51); Lymphocyte % 8.9 % (19-41); Mean Corp Hgb Conc 33.4 g/dL (32-36); Mean Corpuscular Hgb 30.4 pg (27.0-32.0); Mean Corpuscular Volume 90.9 fL (80-94); Mean Platelet Vol. 10.5 fl (6.2-12.0); Monocyte# 2.67 X10^3/uL; Monocyte% 15.1 % (0-10); NRBC Flagged by Analyzer 0 % (0-5); Neutrophil # 12.89 X10^3/uL (2.7-7.7); Neutrophil % 72.9 % (47-70); POSITIVE DIFFERENTIAL YES; Platelet Count 148 K/mm3 (150-450); RBC Distribution Width CV 12.6 % (11.6-14.6); Red Blood Count 4.05 M/mm3 (4.6-6.2); White Blood Count 17.7 K/mm3 (4.4-11.0)
[2024-04-16 11:23] LABS: Differential Indicated SCAN CRITERIA MET
[2024-04-16 11:33] LABS: AST(SGOT) 319 U/L (15-37); Alanine Aminotransfer ALT/SGPT 591 U/L (16-61); Alkaline Phosphatase 390 U/L (45-117); Anion Gap 8 (5-15); BUN 33 mg/dL (7-18); BUN/Creat Ratio 16.2 RATIO (10-20); Bilirubin, Direct 0.55 mg/dL (0.00-0.30); Calcium,Total 9.1 mg/dL (8.5-10.1); Chloride 98 mmol/L (98-107); Creatinine, Serum 2.04 mg/dL (0.70-1.30); EST Glomerular Filtration Rate 33 mL/min (>60); Est Glom Filt Rate - Afr Amer 40 mL/min (>60); Estimated Creatinine Clearance 32.09 ml/min; Globulin 3.8 g/dL (2.2-4.2); Glucose 114 mg/dL (74-106); Potassium 4.6 mmol/L (3.5-5.1); Protein, Total 6.8 g/dL (6.4-8.2); Sodium Level 129 mmol/L (136-145); Troponin-I HS 220 pg/mL (3.0-78.0)
--- NOTE | 2024-04-16 11:41 | CT_ITS ---
STUDY: CT ABDOMEN AND PELVIS WITH CONTRAST REASON FOR EXAM: Male, 83 years old. Elevated liver enzymes pain RADIATION DOSAGE (If Supplied By Facility): CTDIvol = ( 16.22 ) mGy, DLP = ( 1547.63 ) mGycm TECHNIQUE: Transaxial images were obtained from the dome of the diaphragm to the symphysis pubis without oral contrast. IV 100mL Isovue-370 was administered. Sagittal and coronal images were reconstructed. Individualized dose optimization techniques were used for this CT. COMPARISON: None. FINDINGS: No pulmonary embolism. The visualized portions of the heart are within normal limits. Hepatomegaly. There are multiple hypodense nodules scattered throughout both the right and left lobes of the liver with diffuse metastatic deposits. The gallbladder is not visualized. Normal spleen. Heterogeneous appearance of the pancreas with focal areas of calcification suggestive chronic pancreatitis. There is dilated ducts in the periphery aspect of the pancreas. Possible 2 cm x 2 cm mass in the body of the pancreas. Normal bilateral adrenal glands. Normal right kidney. Normal left kidney. Normal visualized stomach. There is a 3.3 cm diverticulum in the second portion of the duodenum. There are multiple colonic diverticula consistent with diverticulosis. The appendix is visualized and appears normal. There is diffuse atherosclerotic calcification of the abdominal aorta, without a demonstrated aneurysm. Normal inferior vena cava. Normal retroperitoneum. Mildly distended urinary bladder. There is a 2.1 cm diverticulum along the left posterior aspect of the bladder. Normal abdominal wall. There are diffuse degenerative changes of the visualized lumbar spine. Prior bilateral total hip replacement. There is a 1.5 cm x 1.7 cm well-defined hypodensity in the body of the L5 vertebrae on the left side of the midline. CT/Abdomen/Pelvis W IV Cont ONLY IMPRESSION: Hepatomegaly and multiple hypodense nodules in both lobes of the liver suggestive of metastasis. Heterogeneous appearance of the pancreas with possible mass in the body of the pancreas as described. Electronically Signed: Aashish Bonilla MD at 13:23 EDT ,
--- NOTE | 2024-04-16 11:41 | CT_ITS ---
STUDY: CTA CHEST REASON FOR EXAM: Male, 83 years old. Pulmonary embolism. Shortness of breath. COPD. RADIATION DOSAGE (If Supplied By Facility): CTDIvol = ( 16.22 ) mGy, DLP = ( 1547.63 ) mGycm TECHNIQUE: The examination was performed with the intravenous administration of IV 100mL Isovue-370. Post-processing of the angiographic images was performed, with multiplanar reformation and 3D reconstruction. Individualized dose optimization techniques were used for this CT. COMPARISON: Comparison is made with prior chest radiograph done earlier today. FINDINGS: Multiple intraluminal filling defects in branches of the right upper and right lower lobe pulmonary arterial branches in keeping with the pulmonary emboli. Scattered filling defects are seen in branches of the left upper lobe pulmonary artery. There is atherosclerotic calcification of the aortic arch with tortuosity. There is no demonstrated aortic dissection. Normal heart and pericardium. Minimal coronary artery calcification seen. Normal mediastinum. Normal hilar regions. Normal visualized trachea and bronchi. The lungs are well expanded. Normal pulmonary parenchyma. Normal pleura. Normal chest wall structures. There are degenerative changes of thoracic spine. There is a 1.7 x 1.5 cm hypodense nodule in the inferior aspect of the right lobe of the liver. Questionable 2.4 cm x 2.1 cm hypodense nodule in the central portion of the right lobe. Multiple scattered hypodensities seen throughout the liver. Metastatic deposits should be ruled out. CT/CTA Chest W/WO Contrast IMPRESSION: Bilateral pulmonary emboli more prominent in the right lung. Multiple hypodense nodules in the liver as described. Metastatic deposits should be ruled out. Electronically Signed: Aashish Bonilla MD at 12:58 EDT ,
[2024-04-16 11:43] LABS: BNP,B-Type NATRIURETIC PEPTIDE 36.4 pg/mL (0-100)
[2024-04-16] MEDS: 0.9% Normal Saline (1000mL) 1,000 ML 999 ML IV (11:47)
[2024-04-16 11:51] LABS: Differential Comment SCANNED; Platelet Estimate ADEQUATE (ADEQ); Red Cell Morphology NORM C+C NORMAL (NORM C&C)
[2024-04-16 12:05] LABS: Lipase 54 U/L (13-75)
[2024-04-16] MEDS: Heparin Injection (Vial) 5,000 UNIT/ML VIAL 7500 UNIT IV (13:41)
[2024-04-16] MEDS: HEPARIN/D5w 25,000 UNITS 25,000 UNITS/250 ML IV.SOLN. 14 UNITS CONT INF (13:49)
[2024-04-16 14:12] LABS: International Normalized Ratio 1.5
--- NOTE | 2024-04-16 14:25 | PCM.HP.STD ---
HPI - General General Date of Admission: 04/16/24 Date of Service: 04/16/24 Chief Complaint: shortness of breath HPI Narrative CHHAYA VILLA, is a 83 M who presents with shortness of breath. Short of breath been going on for few weeks now but has progressively gotten worse. He presented to and had a CT of the chest that showed pulmonary emboli but also showed hepatic lesions. Patient underwent a CT of the abdomen pelvis that showed hepatic as well as pancreatic lesions. Patient was started on a heparin drip. ED physician spoke with radiology who stated that he would be able to do a liver biopsy for 1 to hepatic lesions on the . Patient has no prior history of cancer. [facility] Medical History Moderate COPD (chronic obstructive pulmonary disease) Abnormal stress test Essential hypertension Wears glasses Cancer Anxiety Alcohol use Prostate disease History of renal disease Low iron DVT (deep venous thrombosis) Easy bruising Essential tremor Blackout Diarrhea Abdominal bloating Former smoker Shortness of breath on exertion Hoarseness Leg cramps History of edema History of stress test History of rheumatic fever Asthma Hypertension Arthritis Fatigue Anemia Chronic kidney disease History of colon polyps Chronic diarrhea Sebaceous cyst Home Medications ?Medication ?Instructions ?Recorded ?Last Taken ?Type albuterol sulfate 90 mcg/actuation 2 puff inhalation Q6H PRN Sob &/Or 06/05/18 04/13/24 History aerosol inhaler (ProAir HFA) Wheezing tamsulosin 0.4 mg capsule 0.4 mg PO QHS 09/14/22 04/16/24 History vitamin B complex 1 cap PO DAILY 09/14/22 04/15/24 History cholecalciferol (vitamin D3) 25 50 mcg PO DAILY 10/28/22 04/15/24 History mcg (1,000 unit) capsule hydroxyzine HCl 50 mg tablet 50 mg PO Q6H PRN anxiety 03/14/23 04/15/24 History ferrous fumarate 324 mg (106 mg 324 mg PO DAILY #90 tabs 03/05/24 04/15/24 Rx iron) tablet albuterol sulfate 2.5 mg/3 mL 2.5 mg inhalation 4X/DAY PRN PRN 04/16/24 04/15/24 History (0.083 %) solution for nebulization wheezing bupropion HCl 150 mg 24 hr tablet, 150 mg PO DAILY 04/16/24 04/16/24 History extended release buspirone 15 mg tablet 15 mg PO BID 04/16/24 04/16/24 History finasteride 5 mg tablet 5 mg PO DAILY 04/16/24 04/15/24 History fluticasone propionate 110 2 puff inhalation BID 04/16/24 04/16/24 History mcg/actuation HFA aerosol inhaler Allergy/AdvReac Type Severity Reaction Status Date / Time hydrocodone AdvReac Intermediate anxiety Verified 04/16/24 10:30 reaction oxycodone AdvReac Intermediate anxiety Verified 04/16/24 10:30 reaction Family History Mother Asthma Diabetes Father Cancer Leukemia Aunt Diabetes Surgical History Hx of ligation of vein History of esophagogastroduodenoscopy (EGD) Hx of right cataract extraction Hx of left cataract extraction Hx of shoulder surgery History of colonoscopy History of laparoscopic cholecystectomy History of left knee replacement History of left hip replacement History of right hip replacement History of right knee joint replacement Social History Smoking Status: Former smoker alcohol intake: current alcohol intake frequency: 0-2 drinks per day details: scotch/soda every evening substance use type: does not use ROS ROS Narrative Weight loss. All review of systems were negative except as mentioned above in the history of present illness and the other review of systems. Vital Signs Vital Signs Vital Signs: 04/16/24 10:26 04/16/24 10:48 04/16/24 11:30 Temperature 36.4 C L 36.4 C L Temperature Source Oral Temporal Pulse Rate 106 H 97 Respiratory Rate 22 H 28 H Respiratory Effort Short of Breath Respiratory Depth Normal Respiratory Pattern Hyperpnea Blood Pressure 133/76 H 133/74 H Blood Pressure Mean 95 93 Pulse Ox 97 98 Oxygen Delivery Method Room Air Room Air Room Air 04/16/24 12:00 04/16/24 13:00 04/16/24 13:38 Temperature 36.4 C L 36.6 C 36.6 C Temperature Source Temporal Temporal Pulse Rate 92 102 H 102 H Respiratory Rate 22 H 26 H 26 H Respiratory Effort Respiratory Depth Respiratory Pattern Blood Pressure 132/86 H 126/87 H 126/87 H Blood Pressure Mean 101 100 100 Pulse Ox 95 98 98 Oxygen Delivery Method Room Air 04/16/24 14:00 Temperature 36.1 C L Temperature Source Temporal Pulse Rate 100 Respiratory Rate 20 H Respiratory Effort Respiratory Depth Respiratory Pattern Blood Pressure 139/76 H Blood Pressure Mean 97 Pulse Ox 100 Oxygen Delivery Method Room Air Weight Weight: 92.714 kg Body Mass Index (BMI) 26.9 Physical Exam Const alert and no apparent distress General Appearance: cooperative HEENT normocephalic and head/scalp atraumatic Eyes conjunctivae normal Eyes Narrative: No icterus Neck no lymphadenopathy Neck Narrative: No thyromegaly Resp normal respiratory effort and no retractions Cardio regular rate, regular rhythm, S1 normal heart sound and S2 normal heart sound GI normal to inspection, nondistended, normoactive bowel sounds, soft to palpation, non-tender, non-distended and hepatosplenomegaly Extremity normal to inspection, full ROM and no clubbing, cyanosis or edema Neuro oriented x3, CN's II-XII intact bilaterally, moves all extremities and no focal motor deficits Sensorium / Orientation: awake, alert and oriented to person Psych affect normal Results Lab / Micro Data Attestation: I reviewed the patient's lab results. 04/16/24 10:49 04/16/24 10:49 Labs: Laboratory Results - last 24 hr 04/16/24 10:49: WBC 17.7 H, RBC 4.05 L, Hgb 12.3 L, Hct 36.8 L, MCV 90.9, MCH 30.4, MCHC 33.4, RDW Std Deviation 42.0, RDW Coeff of Moni 12.6, Plt Count 148 L, MPV 10.5, Immature Gran % (Auto) 2.500 H, Neut % (Auto) 72.9 H, Lymph % (Auto) 8.9 L, [place] % (Auto) 15.1 H, Eos % (Auto) 0.3, Baso % (Auto) 0.3, Absolute Neuts (auto) 12.9 H, Absolute Lymphs (auto) 1.57, Nucleated RBC % 0, Differential Comment SCANNED, Diff Path Review May foll, Platelet Estimate ADEQUATE, RBC Morphology NORM C+C, Sodium 129 L, Potassium 4.6, Chloride 98, Carbon Dioxide 23.0, Anion Gap 8, BUN 33 H, Creatinine 2.04 H, Estim Creat Clear Calc 32.09, Est GFR (MDRD) Af Amer 40 L, Est GFR (MDRD) Non-Af 33 L, BUN/Creatinine Ratio 16.2, Glucose 114 H, Calcium 9.1, Total Bilirubin 1.20 H, Direct Bilirubin 0.55 H, AST 319 H, ALT 591 H, Alkaline Phosphatase 390 H, Troponin I High Sens 220 H*, B-Natriuretic Peptide 36.4, Total Protein 6.8, Albumin 3.0 L, Globulin 3.8, Lipase 54 04/16/24 13:25: PT 18.0 H, INR 1.5, APTT 33.0 EKG Initial EKG: Attestation: I personally reviewed and interpreted this EKG as follows: Prior EKG tracings: available for review EKG Rhythm Intrepretation: Sinus Tachycardia Imaging Radiology Impression Chest X-Ray 04/16/24 11:05 IMPRESSION: Hyperinflation. No acute abnormality is seen. Electronically Signed: Aashish Bonilla MD at 11:36 EDT , Abdomen/Pelvis CT 04/16/24 11:41 IMPRESSION: Hepatomegaly and multiple hypodense nodules in both lobes of the liver suggestive of metastasis. Heterogeneous appearance of the pancreas with possible mass in the body of the pancreas as described. Electronically Signed: Aashish Bonilla MD at 13:23 EDT , Chest CTA 04/16/24 11:41 IMPRESSION: Bilateral pulmonary emboli more prominent in the right lung. Multiple hypodense nodules in the liver as described. Metastatic deposits should be ruled out. Electronically Signed: Aasihsh Bonilla MD at 12:58 EDT , Assessment & Plan Assessment/Plan (1) Pulmonary embolism: PLAN: Suspected malignancy induced. Will have the patient on heparin which was started in the emergency room. Will continue with that and the patient is to have a liver biopsy for the . Suspect sometime afterwards that patient could be started on apixaban. Check an echocardiogram (2) Non-ST elevation VA (NSTEMI): PLAN: Suspected type II event given the pulmonary emboli. Check an echocardiogram Patient anticoagulated with heparin (3) Metastasis to liver: PLAN: Suspected malignancy. I discussed with the patient and his that I suspect that this is an underlying cancer but he would need a biopsy to confirm a cancer diagnosis. I discussed with him about a CT-guided biopsy of his liver to assess one of the liver lesions that he has. He is understanding and wishes to proceed. So an order is placed for CT-guided biopsy of his liver. Check CEA and CA 19?9. Patient is already established with Dr. Marks, of hematology, for anemia. He will follow-up with Dr. Mccullough as outpatient for the liver biopsy results. PLAN: Plan Chronic conditions COPD: Stable. Despite his shortness of breath his oxygen is 100% on room air at rest. Anemia: Stable. Continue with iron replacements. CKD 3B: Slightly higher than his baseline. With him receiving IV contrast for the CT angiogram, will give him a liter of IV fluids. BPH: Continue with tamsulosin and finasteride. VTE prophylaxis: Not indicated as patient will already be anticoagulated CODE STATUS: Addressed with the patient. Patient is to be full code. Charges/Coding Visit Charges Inpatient E&M: 29173 Init Hosp L3
--- NOTE | 2024-04-16 14:43 | ECHOCS_ITS ---
Reason For Study: PULMONARY EMBOLISM Procedure This was a 2D Doppler, Color Flow transthoracic echocardiogram. Contrast injection was performed. The study was technically difficult. Patient scanned in the upright position due to shortness of breath from PE. Exam performed portable in patient room. Left Ventricle Normal LV size. Left ventricular systolic function is normal. The left ventricular ejection fraction is 70 %. Stage 1 diastolic dysfunction. No regional wall motion abnormalities noted. Right Ventricle Normal RV size. Normal systolic function. Atria Normal left atrium. Normal right atrium. Mitral Valve Normal mitral valve. Tricuspid Valve Normal tricuspid valve. Aortic Valve Trisinus/trileaflet aortic valve. Pulmonic Valve Normal pulmonic valve. Great Vessels Normal aortic root. The pulmonary artery is normal size. Inferior vena cava collapse with respiration. Pericardium/Pleural No pericardial effusion. Medication Diluted definity 3ml given slow IV push to enhance endocardial definition. MMode/2D Measurements & Calculations LVIDd: 3.6 cm IVSd: 1.5 cm LVOT diam: 2.0 cm LVIDs: 2.4 cm LVPWd: 1.4 cm RVDd: 2.5 cm FS: 34.1 % LVOT area: 3.1 cm2 asc Aorta Diam: 3.4 cm LAV(MOD-sp4): 22.3 ml LVAd ap4: 36.7 cm2 LVLd ap4: 9.6 cm EDV(MOD-sp4): 113.3 ml EDV(sp4-el): 119.1 ml LVAs ap4: 19.1 cm2 LVLs ap4: 8.5 cm ESV(MOD-sp4): 34.8 ml ESV(sp4-el): 36.2 ml EF(MOD-sp4): 69.3 % EF(sp4-el): 69.6 % LVAd ap2: 30.8 cm2 SV(MOD-sp4): 78.5 ml SV(MOD-sp2): 49.7 ml LVLd ap2: 8.7 cm SI(MOD-sp4): 36.2 ml/m2 SI(MOD-sp2): 22.9 ml/m2 EDV(MOD-sp2): 86.9 ml EDV(sp2-el): 92.4 ml LVAs ap2: 19.0 cm2 LVLs ap2: 7.7 cm ESV(MOD-sp2): 37.1 ml ESV(sp2-el): 39.6 ml EF(MOD-sp2): 57.2 % SV(sp4-el): 82.9 ml Ao sinus diam: 3.[address] Junction: 2.7 cm LA dimension(2D): 3.1 cm LA A4 area: 11.9 cm2 RA A4 area: 15.3 cm2 TAPSE: 1.7 cm Time Measurements MV dec time: 0.16 sec Doppler Measurements & Calculations MV E max sarthak: 45.1 cm/sec Lat Peak E' Sarthak: 9.8 cm/sec Med Peak E' Sarthak: 7.8 cm/sec MV A max sarthak: 71.3 cm/sec E/E' lat: 4.6 E/E' med: 5.8 MV E/A: 0.63 MV dec slope: 286.6 cm/sec2 Ao V2 max: 98.9 cm/sec LV V1 max: 89.9 cm/sec Ao max P.9 mmHg LV V1 max P.2 mmHg Ao V2 mean: 81.0 cm/sec LV V1 mean P.1 mmHg Ao mean P.7 mmHg LV V1 mean: 69.4 cm/sec Ao V2 VTI: 14.3 cm LV V1 VTI: 13.5 cm AV (velocity ratio): 0.94 SOFY(I,D): 2.9 cm2 SOFY(V,D): 2.8 cm2 SV(LVOT): 41.6 ml PA V2 max: 75.7 cm/sec PA max PG (full): -0.13 mmHg ECHO/Echo Complete W/ Contrast Interpretation Summary Normal LV size. Left ventricular systolic function is normal. The left ventricular ejection fraction is 70 %. Stage 1 diastolic dysfunction. Contrast injection was performed. Ordering Physician: Dawood Donaldson Referring Physician: LEIDY MELGAR Performed By: Bernadine Braswell RDCS and Student
[2024-04-16 16:02] LABS: Troponin-I HS 227 pg/mL (3.0-78.0)
[2024-04-16] MEDS: 0.9% Normal Saline (1000mL) 1,000 ML 150 ML IV (17:32)
[2024-04-16 17:42] LABS: Troponin-I HS 244 pg/mL (3.0-78.0)
[2024-04-16] MEDS: Budesonide Respules 0.5 MG/2 ML AMPUL.NEB. INHALATION (19:37)
[2024-04-16] MEDS: Albuterol 2.5 MG/3 ML VIAL.NEB. INHALATION (19:37)
[2024-04-16 21:22] LABS: Partial Thromboplast Time 73.4 Seconds (24.1-36.2)
[2024-04-16 21:38] LABS: Troponin-I HS 253 pg/mL (3.0-78.0)
--- NOTE | 2024-04-16 21:53 | NURSING ---
Physician notified of triggered sepsis alert. Fluids ordered, otherwise no new orders at this point.
--- NOTE | 2024-04-16 21:57 | PCM.HOSP.N ---
Hospitalist Note 83-year-old gentleman was admitted with shortness of breath for few weeks getting worse and found to have pulmonary emboli with hepatic lesions. Patient having tachycardia and elevated white count but CT chest does not show any focal lesions like pneumonia or bronchitis. Actually CT reported normal visualized trachea and bronchi, lungs are well-expanded. Normal mediastinum and hilar regions. Normal pulmonary parenchyma. Patient white count may be elevated from acute inflammation from PE and also multiple hypodense nodules in the liver probably/suspected metastatic deposits. At this point, I do not think patient has suspected or known infection but in case if he gets fever will need blood cultures. Patient also has chronic kidney disease Clinical Impression(s) from Imaging Studies Chest X-Ray 04/16/24 11:05 IMPRESSION: Hyperinflation. No acute abnormality is seen. Electronically Signed: Aashish Bonilla MD at 11:36 EDT , Abdomen/Pelvis CT 04/16/24 11:41 IMPRESSION: Hepatomegaly and multiple hypodense nodules in both lobes of the liver suggestive of metastasis. Heterogeneous appearance of the pancreas with possible mass in the body of the pancreas as described. Electronically Signed: Aashish Bonilla MD at 13:23 EDT , Chest CTA 04/16/24 11:41 IMPRESSION: Bilateral pulmonary emboli more prominent in the right lung. Multiple hypodense nodules in the liver as described. Metastatic deposits should be ruled out. Electronically Signed: Aashish Bonilla MD at 12:58 EDT , Echocardiogram 04/16/24 14:43 Interpretation Summary Normal LV size. Left ventricular systolic function is normal. The left ventricular ejection fraction is 70 %. Stage 1 diastolic dysfunction. Contrast injection was performed. Ordering Physician: Dawood Donaldson Referring Physician: LEIDY MELGAR Performed By: Bernadine Braswell RDCS and Student
[2024-04-16] MEDS: busPIRone 15 MG TABLET PO (22:06)
[2024-04-16] MEDS: Tamsulosin HCl 0.4 MG Capsule PO (22:06)
[2024-04-16] MEDS: LORazepam 0.5 MG Tablet PO (22:09)
[2024-04-17] VITALS (16 sets, daily range): BP systolic 112–170; BP diastolic 53–85; PULSE 88–105; RESP 10–26; TEMP 36.6–37.7; O2SAT 17–99
--- NOTE | 2024-04-17 | IMM_PTH ---
PATIENT: CHHAYA VILLA LOC: [facility] U#:[id number] AGE/SX: 83/M ROOM: [facility] RE04/16/[address]: Dr. Krishna Petersen MD : [id number] BED: 1 DIS: 04/18/2024 SPEC #: [id number] RECD: 04/18/24 09:37 STATUS: DUSTIN REQ #: [id number] MIS: 04/17/24 00:[address]: Krishna Petersen DEPT: IMMUNOHISTOCHEMISTRY RECD BY: Ruel Beltran ENTERED: 04/18/24 09:41 SP TYPE: IMMUNO OTHR DR: Dr. Dawood Donaldson, DO Aga Sylvester, [employer]-C Tissues: Liver, NOS Procedures: RCC (add) NAPSIN A (add) CK20 (add) CK5-6 (add) CK7 (add) CK8 (add) HEP PAR (add) KI-67 (add) P53 (add) TTF1 (add) Pankeratin (initial) P40 (add) PSAP (add) PHYSICIAN & [address] [address] SPECIMEN INFORMATION: Tissue Source: Liver biopsy Clinical Info: Pancreatic and liver mass Specimen Number: [id number] CPT code: 22277,[id number] METHODOLOGY: Deparaffinized sections of prefer/formalin-fixed tissue or PAP/DQ stained slides are incubated with monoclonal/polyclonal antibodies/oligonucleotide probes. Localization is made via biotin free immunoperoxidase method. Appropriate controls are performed and reacted as expected. Results on target cell population are indicated in the following table: RESULTS: ANTIBODY / CLONE RESULT AE1-3 (AE1/AE3/PCK26) positive CK7 (OV-TL12/30) positive CK8 (03wrddD43) positive CK20 (KS20.8) positive, focal TTF-1 (8G7G3/1) negative Napsin A (Rabbit Polyclonal) negative HepPar (OCh1E5) negative RCC (PN-15) negative PSAP (PASE/4LJ) negative CK5-6 (D5 & 1684) positive, focal P40 (BC28) positive, focal P53 (DO-7) positive (missense mutation pattern) Ki-67 (30-9) positive, high These tests were developed and their performance characteristics determined by [facility]. They may not have been cleared or approved by the U.S. Food and Drug Administration. The FDA has determined that such clearance or approval is not necessary. The above immunohistochemical/dualISH markers are ordered and reviewed by the Pathologist. INTERPRETATION: Liver, CT guided core biopsy: Metastatic adenocarcinoma. See comment. COMMENT: IHC profile is compatible with clinical impression of pancreatic primary. ADRIAN/ 04/18/2024
[2024-04-17] MEDS: 0.9% Normal Saline (1000mL) 1,000 ML 100 ML IV (00:17)
[2024-04-17 04:16] LABS: Absolute Lymphocyte Count 2.08 X10^3/uL (0.83-4.51); Absolute Neutrophil Count 7.8 X10^3/uL (2.0-7.7); Basophil# 0.06 X10^3/uL; Basophil% 0.5 % (0-1); Eosinophil# 0.28 X10^3/uL; Eosinophils% 2.3 % (0-5); Hematocrit 31.3 % (40-54); Hemoglobin 10.3 g/dL (13.0-16.5); Lymphocyte # 2.08 X10^3/ul (0.83-4.51); Lymphocyte % 16.9 % (19-41); Mean Corp Hgb Conc 32.9 g/dL (32-36); Mean Corpuscular Hgb 29.9 pg (27.0-32.0); Mean Platelet Vol. 10.4 fl (6.2-12.0); Monocyte# 1.78 X10^3/uL; Monocyte% 14.5 % (0-10); NRBC Flagged by Analyzer 0 % (0-5); Neutrophil # 7.82 X10^3/uL (2.7-7.7); Neutrophil % 63.4 % (47-70); POSITIVE DIFFERENTIAL YES; Platelet Count 151 K/mm3 (150-450); RBC Distribution Width CV 12.9 % (11.6-14.6); RBC Distribution Width SD 42.4 fl (35.1-43.9); Red Blood Count 3.44 M/mm3 (4.6-6.2); White Blood Count 12.3 K/mm3 (4.4-11.0)
[2024-04-17 04:35] LABS: Partial Thromboplast Time 57.1 Seconds (24.1-36.2)
[2024-04-17 04:41] LABS: ALB/GLOB Ratio 0.8 RATIO (0.9-2.4); AST(SGOT) 176 U/L (15-37); Alanine Aminotransfer ALT/SGPT 396 U/L (16-61); Albumin, Serum 2.5 g/dL (3.2-5.0); Alkaline Phosphatase 349 U/L (45-117); Anion Gap 6 (5-15); BUN 29 mg/dL (7-18); BUN/Creat Ratio 15.3 RATIO (10-20); Calcium,Total 8.3 mg/dL (8.5-10.1); Chloride 105 mmol/L (98-107); Creatinine, Serum 1.89 mg/dL (0.70-1.30); Differential Indicated SCAN CRITERIA MET; EST Glomerular Filtration Rate 37 mL/min (>60); Est Glom Filt Rate - Afr Amer 44 mL/min (>60); Estimated Creatinine Clearance 34.64 ml/min; Globulin 3.3 g/dL (2.2-4.2); Glucose 98 mg/dL (74-106); Potassium 4.2 mmol/L (3.5-5.1); Protein, Total 5.8 g/dL (6.4-8.2); Sodium Level 134 mmol/L (136-145)
[2024-04-17 05:30] LABS: Differential Comment SCANNED
[2024-04-17] MEDS: Budesonide Respules 0.5 MG/2 ML AMPUL.NEB. INHALATION ×2 (07:01→19:09)
--- NOTE | 2024-04-17 08:23 | PN.HOSP_ITS ---
Reason for Visit Reason for Visit: Diagnoses Secondary malignant neoplasm of liver and intrahepatic bile duct (04/16/24) Non-ST elevation (NSTEMI) myocardial infarction (04/16/24) Other pulmonary embolism without acute cor pulmonale (04/16/24) Subjective Subjective Patient is an 83-year-old male who presented with poor appetite weight loss and shortness of breath patient was found to have a heterogeneous appearance of the pancreas with possible mass in the body as well as hepatomegaly with multiple hypodense nodules in both lobes of the liver suggestive of metastasis. Patient was also found to have bilateral pulmonary emboli more prominent in the right lung Objective Data Objective Data Vital Signs: Vital Signs Temp Pulse Resp BP Pulse Ox O2 Del Method 97.9 F 96 16 145/80 H 95 Room Air 04/17/24 04:57 04/17/24 07:02 04/17/24 07:02 04/17/24 04:57 04/17/24 07:02 04/17/24 07:02 Oxygen Delivery Method Room Air Weight: 92.3 kg Body Mass Index (BMI) 26.8 Intake & Output: Intake and Output for Last 24 Hours 04/15/24 04/16/24 04/17/24 23:59 23:59 23:59 Intake Total 1115.97 / 1115.97 1096.6 / 1096.6 Balance 1115.97 / 1115.97 1096.6 / 1096.6 Lab / Micro Data 04/17/24 04:05 04/17/24 04:05 Labs: Laboratory Results - last 24 hr 04/16/24 10:49: WBC 17.7 H, RBC 4.05 L, Hgb 12.3 L, Hct 36.8 L, MCV 90.9, MCH 30.4, MCHC 33.4, RDW Std Deviation 42.0, RDW Coeff of Moni 12.6, Plt Count 148 L, MPV 10.5, Immature Gran % (Auto) 2.500 H, Neut % (Auto) 72.9 H, Lymph % (Auto) 8.9 L, [place] % (Auto) 15.1 H, Eos % (Auto) 0.3, Baso % (Auto) 0.3, Absolute Neuts (auto) 12.9 H, Absolute Lymphs (auto) 1.57, Nucleated RBC % 0, Differential Comment SCANNED, Diff Path Review May foll, Platelet Estimate ADEQUATE, RBC Morphology NORM C+C, Sodium 129 L, Potassium 4.6, Chloride 98, Carbon Dioxide 23.0, Anion Gap 8, BUN 33 H, Creatinine 2.04 H, Estim Creat Clear Calc 32.09, E st GFR (MDRD) Af Amer 40 L, Est GFR (MDRD) Non-Af 33 L, BUN/Creatinine Ratio 16.2, Glucose 114 H, Calcium 9.1, Total Bilirubin 1.20 H, Direct Bilirubin 0.55 H, AST 319 H, ALT 591 H, Alkaline Phosphatase 390 H, Troponin I High Sens 220 H* , B-Natriuretic Peptide 36.4, Total Protein 6.8, Albumin 3.0 L, Globulin 3.8, Lipase 54 04/16/24 13:25: PT 18.0 H, INR 1.5, APTT 33.0 04/16/24 15:10: Troponin I High Sens 227 H* 04/16/24 17:05: Troponin I High Sens 244 H* 04/16/24 20:45: APTT 73.4 H, Troponin I High Sens 253 H* 04/17/24 04:05: WBC 12.3 H, RBC 3.44 L, Hgb 10.3 L, Hct 31.3 L, MCV 91.0, MCH 29.9, MCHC 32.9, RDW Std Deviation 42.4, RDW Coeff of Moni 12.9, Plt Count 151, MPV 10.4, Immature Gran % (Auto) 2.400 H, Neut % (Auto) 63.4, Lymph % (Auto) 16.9 L, [place] % (Auto) 14.5 H, Eos % (Auto) 2.3, Baso % (Auto) 0.5, Absolute Neuts (auto) 7.8 H, Absolute Lymphs (auto) 2.08, Nucleated RBC % 0, Differential Comment SCANNED, Diff Path Review October kady, APTT 57.1 H, Sodium 134 L, Potassium 4.2, Chloride 105, Carbon Dioxide 23.0, Anion Gap 6, BUN 29 H, Creatinine 1.89 H , Estim Creat Clear Calc 34.64, Est GFR (MDRD) Af Amer 44 L, Est GFR (MDRD) Non- Af 37 L, BUN/Creatinine Ratio 15.3, Glucose 98, Calcium 8.3 L, Total Bilirubin 0.80, AST 176 H, ALT 396 H, Alkaline Phosphatase 349 H, Total Protein 5.8 L, A lbumin 2.5 L, Globulin 3.3, Albumin/Globulin Ratio 0.8 L Radiography Diagnostic Testing: Radiology Impression Chest X-Ray 04/16/24 11:05 IMPRESSION: Hyperinflation. No acute abnormality is seen. Electronically Signed: Aashish Bonilla MD at 11:36 EDT , Abdomen/Pelvis CT 04/16/24 11:41 IMPRESSION: Hepatomegaly and multiple hypodense nodules in both lobes of the liver suggestive of metastasis. Heterogeneous appearance of the pancreas with possible mass in the body of the pancreas as described. Electronically Signed: Aashish Bonilla MD at 13:23 EDT , Chest CTA 04/16/24 11:41 IMPRESSION: Bilateral pulmonary emboli more prominent in the right lung. Multiple hypodense nodules in the liver as described. Metastatic deposits should be ruled out. Electronically Signed: Aashish Bonilla MD at 12:58 EDT , Echocardiogram 04/16/24 14:43 Interpretation Summary Normal LV size. Left ventricular systolic function is normal. The left ventricular ejection fraction is 70 %. Stage 1 diastolic dysfunction. Contrast injection was performed. Ordering Physician: Dawood Donaldson Referring Physician: LEIDY MELGAR Performed By: Bernadine Braswell RDCS and Student Physical Exam Narrative GENERAL: cooperative HEENT: Atraumatic; normocephalic EYES; Anicteric, Normal Conjunctiva NECK; supple, normal thyroid, RESPIRATORY: Diminished to auscultation CARDIOVASCULAR: Regular S1 S2, GI: soft, normoactive bowel sounds, : No Renal angle tenderness; EXTREMITIES: No edema, no clubbing, MUSCULOSKELETAL: no muscle wasting NEURO: Awake; no lateralizing signs. SKIN: No Rash PSYCH; Flat affect Assessment & Plan Assessment/Plan (1) Acute dyspnea: (2) Pulmonary embolism: PLAN: Plan Patient is an 83-year-old male who presented with poor appetite weight loss and shortness of breath patient was found to have a heterogeneous appearance of the pancreas with possible mass in the body as well as hepatomegaly with multiple hypodense nodules in both lobes of the liver suggestive of metastasis. Patient was also found to have bilateral pulmonary emboli more prominent in the right lung 1. Acute bilateral pulmonary embolism ? Suspected to be secondary to patient underlying malignancy? Pancreatic CA with mets. Patient was started on heparin in anticipation of patient undergoing biopsy with plans to transition to direct oral anticoagulant following patient biopsy. As part of his management 2D echo was ordered 2. Pancreatic mass with possible mets ? CT of the abdomen and pelvis obtained a heterogeneous appearance of the pancreas with possible mass in the body as well as hepatomegaly with multiple hypodense nodules in both lobes of the liver suggestive of metastasis. Patient is scheduled to undergo biopsy with plans for patient to follow-up with Dr. Marks with oncology as outpatient. Case discussed with team. 3. Elevated troponin ? Secondary to demand ischemia from patient underlying bilateral pulmonary embolism. 2D echo ordered for subsequent eval 4. BPH with lower urinary obstructive symptoms - Patient treated with tamsulosin and finasteride 5. COPD ? Currently not in exacerbation bronchodilator treatment as needed 6. Anemia ? Secondary to chronic disorder monitoring H&H and transfuse if patient becomes symptomatic or hemoglobin falls below 7 8. Chronic kidney disease stage IIIB ? Baseline creatinine 1.79 creatinine on admission was 2.04 patient kidney function did improve following admission currently 1.89 will monitor with daily BMP 9. Depression with anxiety ? Patient is on bupropion as well as buspirone and hydroxyzine 10. Mild hyponatremia ? Possibly related to patient underlying malignancy will monitor ? Charges/Coding Visit Charges Inpatient E&M: 54101 Init Hosp L3
[2024-04-17] MEDS: Midazolam 2 MG/2 ML Syringe IV (09:20)
[2024-04-17] MEDS: fentaNYL 100 MCG/2 ML Ampul IV (09:24)
--- NOTE | 2024-04-17 09:30 | ASPIGT_PTH ---
PATIENT: CHHAYA VILLA LOC: [facility] U#:[id number] AGE/SX: 83/M ROOM: [facility] RE04/16/[address]: Dr. Krishna Petersen MD : [id number] BED: 1 DIS: 04/18/2024 SPEC #: [id number] RECD: 04/17/24 10:04 STATUS: DUSTIN REJoel #: [id number] MIS: 04/17/24 09:[address]: Krishna Petersen DEPT: SURGICAL PATHOLOGY RECD BY: Christy Qureshi ENTERED: 04/17/24 10:04 SP TYPE: ASP RAD OTHR DR: Dr. Dawood Donaldson, DO Aga Sylvester, CLAY PREPARATION SUPERVISOR-C Tissues: Liver, NOS Procedures: FNA Specimen Adequacy Special Stain Group II Surgery Specimen Level IV Surgery Specimen Level V Imprint (control) HEADER OPERATION: CT guided liver biopsy PRE-OP DIAGNOSIS: Pancreatic and liver mass TISSUE SUBMITTED: 18 gauge x 4 cores MICROSCOPIC DIAGNOSIS Liver mass, CT guided core biopsy: Metastatic adenocarcinoma. See note and comment. NOTE: Immunohistochemistry ([id number]) supports the above diagnosis and compatible with clinical impression of pancreatic primary. ADRIAN/ 04/18/2024 COMMENT The specimen is evaluated at the time of biopsy by Dr. Cassidy. Immediate Evaluation = Malignant cells present derived from non-small cell carcinoma. Reported to Kathleen Ayon at 09:45am. Molecular study on the tumor can be performed if clinically indicated. Please notify the laboratory if it is needed. Correlation with clinical, radiologic findings and appropriate follow up are necessary. MICROSCOPIC DESCRIPTION Slides are reviewed. GROSS DESCRIPTION Received in fixative is one container labeled with the patient's name and designated Liver biopsy. The specimen consists of multiple elongated fragments of suggs soft tissue that in aggregate measure 1.5 x 0.3 x 0.1 cm. The specimen is totally submitted in one cassette. Two touch imprints are prepared at the time of core biopsy. 04/17/2024 TC:0 CPT:51251,48296
[2024-04-17] MEDS: Lidocaine 2% (20 ml mdv) 20 ML Vial INFILT (09:33)
--- NOTE | 2024-04-17 09:42 | OP.PCM_ITS ---
Problems Associated Problem List Diagnoses (1) Metastasis to liver: Operative Report (Standard) Operative Information Surgery/Procedure Performed: Liver biopsy Surgeon: Kathleen Ayon Date of Procedure: 04/17/24 Procedure Start Time: 09:20 Procedure Stop Time: 09:38 Pre-Operative Diagnosis: Multiple liver masses Post-Operative Diagnosis: Multiple liver masses Select all DRAINS/GRAFTS/IMPLANTS that apply: None Type of Anesthesia: Local and Other (Procedural Sedation) Estimated Blood Loss: 1 ml Specimen collected: Yes Description of specimen(s) removed: 4 liver biopsy cores Description of surgery: PROCEDURE: CT DIRECTED CORE LIVER BIOPSY ORDERING PROVIDER: Dr. Donaldson INDICATION: Male, 83 years old. Multiple liver masses. PROVIDER: NIR Carter CONSENT: Written informed consent was obtained having explained the risks, benefits and alternatives in detail with the patient who accepted the risks and agreed to proceed. Laboratory review and clinical assessment was performed. PRE-PROCEDURE SEDATION ASSESSMENT: Current history and physical dictated by referring provider and reviewed. No clinical changes since date of exam. Patient has a Mallampati Score of Class 1 and ASA Class of 3. PROCEDURAL SEDATION PROTOCOL: The Drugs used were: 2 mg Versed, IV, and 25 mcg Fentanyl, IV. The sedation time was: 18 minutes, starting at 0920 and terminated at 0938. The procedural sedation protocol was independently monitored by the department nurse. RADIATION DOSAGE (If Supplied By Facility): CTDIvol = 20.34 mGy, DLP = 590.17 mGycm Individualized dose optimization techniques were used for this CT. TECHNIQUE The patient was placed in a supine position. Using CT image guidance with image documentation, a lesion in the left lobe of the liver was identified. The skin surface was prepped with chlorhexidine and draped in a sterile fashion. 2% lidocaine was used for local anesthesia. Using an anterior approach, puncture of the liver was uneventful with an 18-gauge core needle system. Four, 18-gauge core samples were obtained, and submitted in formalin to the pathologist for further assessment. The needle was removed. An occlusive sterile dressing was applied. Patient tolerated the procedure well, and returned to the holding bay for nursing monitoring. IMPRESSION: CT directed core needle biopsy of a liver lesion, using CT image guidance with image documentation as described. Procedural Sedation protocol utilized with independent monitoring. Surgical Findings: Cores obtained. Embroidery Finisher automatic lump making machine tender: No Complications Complications: No Procedures Radiology Radiology CT Procedures: 09926 Biopsy Liver Multi Select Codes Radiology Radiology CT Procedures: 68922-14 CT guidance parenchymal tissue
[2024-04-17] MEDS: Finasteride 5 MG Tablet PO (11:16)
[2024-04-17] MEDS: buPROPion (XL) 150 MG TABLET.XL PO (11:17)
[2024-04-17] MEDS: busPIRone 15 MG TABLET PO ×2 (11:17→20:54)
[2024-04-17] MEDS: Ferrous Sulfate 325 MG Tablet PO (11:17)
--- NOTE | 2024-04-17 12:10 | CASEMGMT ---
LEVAR MONTENEGRO Assessment Face to Face with patient for initial transition planning/care coordination assessment. RN LAN introduced self and role at [facility], pt voices understanding. Pt is A&Ox4 and is resting comfortably in bed and is calm. Care providers, pharmacy, and demographics verified. Admitting dx: PE, New Dx of Cancer LACE Strata: 2 PCP: Aga Sylvester Specialists: Jenaro (Uro), Dr. Marks (Oncology) Preferred Pharmacy: [facility] Insurance: [employer] [facility] Prescription Benefit: Yes LNOK: Fariba Dixon (W) Living Arrangements: Pt lives with his in a 2 story home with 3 steps to enter ADLs/IADLs: Reports ind. Pt states that if he needs help that his can assist him Transportation: Self, DME: Nebulizer. BP Monitor. Denies further needs HHC/SNF: Denies history or needs Pt?s goal: Home Plan: Home with pt once medically ready. Pt plans to f/u with Dr. Marks as an OP. Pt denies the need for HHC, OP PT/OT, SNF, CCN, or Pt Link. Pt may get prescribed a new blood thinner at time of DC. CM to follow. Report given to PRICK STITCHER CM. Joaquín Torres RN, CM
[2024-04-17 14:14] LABS: Pathologist Review Reviewed
[2024-04-17 14:17] LABS: Pathologist Review Reviewed
[2024-04-17] MEDS: HEPARIN/D5w 25,000 UNITS 25,000 UNITS/250 ML IV.SOLN. 14 UNITS CONT INF (19:03)
[2024-04-17] MEDS: 0.9% Saline Lock 10 ML Syringe IV (19:04)
[2024-04-17] MEDS: Ensure Plus High Protein 120 ML LIQUID PO (19:04)
[2024-04-17] MEDS: Acetaminophen 325 MG Tablet 650 MG PO (20:53)
[2024-04-17] MEDS: LORazepam 0.5 MG Tablet PO (20:54)
[2024-04-17] MEDS: Tamsulosin HCl 0.4 MG Capsule PO (20:54)
[2024-04-17] MEDS: APIXABAN 5 MG TABLET 10 MG PO (20:54)
[2024-04-18] VITALS (8 sets, daily range): BP systolic 129–145; BP diastolic 59–85; PULSE 87–101; RESP 17–18; TEMP 36.8–37.2; O2SAT 92–96
[2024-04-18 06:45] LABS: Absolute Lymphocyte Count 1.72 X10^3/uL (0.83-4.51); Absolute Neutrophil Count 8.1 X10^3/uL (2.0-7.7); Basophil# 0.06 X10^3/uL; Basophil% 0.5 % (0-1); Eosinophil# 0.61 X10^3/uL; Eosinophils% 4.9 % (0-5); Hematocrit 31.6 % (40-54); Hemoglobin 10.1 g/dL (13.0-16.5); Lymphocyte # 1.72 X10^3/ul (0.83-4.51); Lymphocyte % 13.9 % (19-41); Mean Corpuscular Hgb 29.4 pg (27.0-32.0); Mean Corpuscular Volume 92.1 fL (80-94); Mean Platelet Vol. 10.9 fl (6.2-12.0); NRBC Flagged by Analyzer 0 % (0-5); Neutrophil # 8.12 X10^3/uL (2.7-7.7); Neutrophil % 65.9 % (47-70); POSITIVE DIFFERENTIAL YES; Platelet Count 156 K/mm3 (150-450); RBC Distribution Width CV 12.8 % (11.6-14.6); RBC Distribution Width SD 42.9 fl (35.1-43.9); Red Blood Count 3.43 M/mm3 (4.6-6.2); White Blood Count 12.3 K/mm3 (4.4-11.0)
[2024-04-18 06:50] LABS: Differential Indicated SCAN CRITERIA MET
[2024-04-18] MEDS: Budesonide Respules 0.5 MG/2 ML AMPUL.NEB. INHALATION (06:55)
[2024-04-18] MEDS: Albuterol 2.5 MG/3 ML VIAL.NEB. INHALATION (06:55)
[2024-04-18 07:06] LABS: Anion Gap 8 (5-15); BUN 31 mg/dL (7-18); BUN/Creat Ratio 17.9 RATIO (10-20); Calcium,Total 8.7 mg/dL (8.5-10.1); Chloride 108 mmol/L (98-107); Creatinine, Serum 1.73 mg/dL (0.70-1.30); EST Glomerular Filtration Rate 40 mL/min (>60); Est Glom Filt Rate - Afr Amer 49 mL/min (>60); Estimated Creatinine Clearance 37.85 ml/min; Glucose 102 mg/dL (74-106); Magnesium 2.3 mg/dL (1.6-2.6); Phosphorus 3.5 mg/dL (2.5-4.9); Potassium 4.4 mmol/L (3.5-5.1); Sodium Level 137 mmol/L (136-145)
--- NOTE | 2024-04-18 07:39 | PCM.PN.HOSP ---
Reason for Visit Reason for Visit: Diagnoses Secondary malignant neoplasm of liver and intrahepatic bile duct (04/16/24) Non-ST elevation (NSTEMI) myocardial infarction (04/16/24) Other pulmonary embolism without acute cor pulmonale (04/16/24) Dyspnea, unspecified (04/16/24) Subjective Subjective Patient underwent biopsy the day prior. Plan is for patient to be assessed for possible discharge today Objective Data Objective Data Vital Signs: Vital Signs Temp Pulse Resp BP Pulse Ox O2 Del Method O2 Flow Rate 98.7 F 100 18 129/59 H 94 Room Air 2 04/18/24 04:00 04/18/24 06:56 04/18/24 06:56 04/18/24 04:00 04/18/24 06:57 04/18/24 06:57 04/18/24 04:00 Oxygen Flow Rate (L/min) 2 Oxygen Delivery Method Room Air Weight: 92.3 kg Body Mass Index (BMI) 26.8 Intake & Output: Intake and Output for Last 24 Hours 04/16/24 04/17/24 04/18/24 23:59 23:59 23:59 Intake Total 1115.97 / 1115.97 2384.03 / 2384.03 Balance 1115.97 / 1115.97 2384.03 / 2384.03 Medical Nutrition Assessment Dietitian: Malnutrition Criteria Met Start: 04/17/24 16:03 Freq: Status: Active Protocol: Document 04/17/24 16:03 SB (Rec: 04/17/24 16:04 SB [id number]) Nutrition Malnutrition Evidence of Malnutrition Exists Yes Malnutrition (severe): Acute Illness/Injury Evidenced By Suboptimal Energy Intake ( Severe),Weight Loss (Severe) Intake Problem Inadequate Oral Intake Etiology related to poor appetite Signs/Symptoms as evidenced by PO meeting <50 % of estimated nutrition needs x 1.5 weeks. Status Active Problem Clinical Problem Acute Disease or Injury Related Malnutrition Etiology severe related to inadequate oral/energy intake and likely increase energy needs d/t metastasis Signs/Symptoms as evidenced by PO meeting <50 % of estimated nutrition needs and 3% unintentional weight loss x 1.5 week Status Active Problem Unintended Weight Loss Etiology related to inadequate oral intake and possible increase energy needs Signs/Symptoms as evidenced by 3% unintentional weight loss x 1. 5 week, per pt report. Status Active Problem Recommendation Dietitian Recommendations/Changes Continue liberal regular diet d/t poor appetite. Will order 120ml chocolate ensure plus high protein 4x daily with medpass. Will adjust ONS, as needed. Will monitor weight, as available. Reviewed and approved by Cyndy Almodovar MS, RDN, LD. Lab / Micro Data 04/18/24 06:18 04/18/24 06:18 Labs: Laboratory Results - last 24 hr 04/16/24 10:49: Diff Path Review Reviewed 04/17/24 04:05: Diff Path Review Reviewed 04/17/24 22:30: APTT 31.0 04/18/24 06:18: WBC 12.3 H, RBC 3.43 L, Hgb 10.1 L, Hct 31.6 L, MCV 92.1, MCH 29.4, MCHC 32.0, RDW Std Deviation 42.9, RDW Coeff of Moni 12.8, Plt Count 156, MPV 10.9, Immature Gran % (Auto) 1.800 H, Neut % (Auto) 65.9, Lymph % (Auto) 13.9 L, [place] % (Auto) 13.0 H, Eos % (Auto) 4.9, Baso % (Auto) 0.5, Absolute Neuts (auto) 8.1 H, Absolute Lymphs (auto) 1.72, Nucleated RBC % 0, Sodium 137, Potassium 4.4, Chloride 108 H, Carbon Dioxide 21.0, Anion Gap 8, BUN 31 H, Creatinine 1.73 H, Estim Creat Clear Calc 37.85, Est GFR (MDRD) Af Amer 49 L, Est GFR (MDRD) Non-Af 40 L, BUN/Creatinine Ratio 17.9, Glucose 102, Calcium 8.7, Phosphorus 3.5, Magnesium 2.3 Physical Exam Narrative GENERAL: cooperative HEENT: Atraumatic; normocephalic EYES; Anicteric, Normal Conjunctiva NECK; supple, normal thyroid, RESPIRATORY: Diminished to auscultation CARDIOVASCULAR: Regular S1 S2, GI: soft, normoactive bowel sounds, : No Renal angle tenderness; EXTREMITIES: No edema, no clubbing, MUSCULOSKELETAL: no muscle wasting NEURO: Awake; no lateralizing signs. SKIN: No Rash PSYCH; Flat affect Assessment & Plan Assessment/Plan (1) Acute dyspnea: (2) Pulmonary embolism: PLAN: Plan Patient is an 83-year-old male who presented with poor appetite weight loss and shortness of breath patient was found to have a heterogeneous appearance of the pancreas with possible mass in the body as well as hepatomegaly with multiple hypodense nodules in both lobes of the liver suggestive of metastasis. Patient was also found to have bilateral pulmonary emboli more prominent in the right lung 1. Acute bilateral pulmonary embolism ? Suspected to be secondary to patient underlying malignancy? Pancreatic CA with mets. Patient was started on heparin in anticipation of patient undergoing biopsy with plans to transition to direct oral anticoagulant following patient biopsy. As part of his management 2D echo was ordered ? 04/18/2020 four 2D echo demonstrated Normal LV size. Left ventricular systolic function is normal. The left ventricular ejection fraction is 70 %. Stage 1 diastolic dysfunction. Patient will be assessed for discharge 2. Pancreatic mass with possible mets ? CT of the abdomen and pelvis obtained a heterogeneous appearance of the pancreas with possible mass in the body as well as hepatomegaly with multiple hypodense nodules in both lobes of the liver suggestive of metastasis. Patient is scheduled to undergo biopsy with plans for patient to follow-up with Dr. Marks with oncology as outpatient. Case discussed with him. 3. Elevated troponin ? Secondary to demand ischemia from patient underlying bilateral pulmonary embolism. 2D echo ordered for subsequent eval 4. BPH with lower urinary obstructive symptoms - Patient treated with tamsulosin and finasteride 5. COPD ? Currently not in exacerbation bronchodilator treatment as needed 6. Anemia ? Secondary to chronic disorder monitoring H&H and transfuse if patient becomes symptomatic or hemoglobin falls below 7 8. Chronic kidney disease stage IIIB ? Baseline creatinine 1.79 creatinine on admission was 2.04 patient kidney function did improve following admission currently 1.89 will monitor with daily BMP 9. Depression with anxiety ? Patient is on bupropion as well as buspirone and hydroxyzine 10. Mild hyponatremia ? Possibly related to patient underlying malignancy will monitor ? Charges/Coding Visit Charges Inpatient E&M: 51386 Subs Hosp L2
[2024-04-18 08:12] LABS: Differential Comment SCANNED
[2024-04-18] MEDS: Finasteride 5 MG Tablet PO (09:53)
[2024-04-18] MEDS: buPROPion (XL) 150 MG TABLET.XL PO (09:53)
[2024-04-18] MEDS: APIXABAN 5 MG TABLET 10 MG PO (09:53)
[2024-04-18] MEDS: busPIRone 15 MG TABLET PO (09:54)
[2024-04-18] MEDS: Ferrous Sulfate 325 MG Tablet PO (09:54)
[2024-04-18] MEDS: Ensure Plus High Protein 120 ML LIQUID PO (09:54)
--- NOTE | 2024-04-18 09:59 | PCM.DC.SUM ---
Providers Date of Admission: 04/16/24 Primary Care Physician: BECKY Marx Reason For Visit: PULMONARY ENBOLISM; NEW DX OF CANCER Diagnosis Discharge Diagnosis (1) Acute dyspnea: Status: Acute Code(s): R06.00 - Dyspnea, unspecified (2) Pulmonary embolism: Status: Acute Code(s): I26.99 - Other pulmonary embolism without acute cor pulmonale Plan Patient is an 83-year-old male who presented with poor appetite weight loss and shortness of breath patient was found to have a heterogeneous appearance of the pancreas with possible mass in the body as well as hepatomegaly with multiple hypodense nodules in both lobes of the liver suggestive of metastasis. Patient was also found to have bilateral pulmonary emboli more prominent in the right lung 1. Acute bilateral pulmonary embolism ? Suspected to be secondary to patient underlying malignancy? Pancreatic CA with mets. Patient was started on heparin in anticipation of patient undergoing biopsy with plans to transition to direct oral anticoagulant following patient biopsy. As part of his management 2D echo was ordered ? 04/18/2020 four 2D echo demonstrated Normal LV size. Left ventricular systolic function is normal. The left ventricular ejection fraction is 70 %. Stage 1 diastolic dysfunction. Patient will be assessed for discharge 2. Pancreatic mass with possible mets ? CT of the abdomen and pelvis obtained a heterogeneous appearance of the pancreas with possible mass in the body as well as hepatomegaly with multiple hypodense nodules in both lobes of the liver suggestive of metastasis. Patient is scheduled to undergo biopsy with plans for patient to follow-up with Dr. Marks with oncology as outpatient. Case discussed with him. 3. Elevated troponin ? Secondary to demand ischemia from patient underlying bilateral pulmonary embolism. 2D echo ordered for subsequent eval 4. BPH with lower urinary obstructive symptoms - Patient treated with tamsulosin and finasteride 5. COPD ? Currently not in exacerbation bronchodilator treatment as needed 6. Anemia ? Secondary to chronic disorder monitoring H&H and transfuse if patient becomes symptomatic or hemoglobin falls below 7 8. Chronic kidney disease stage IIIB ? Baseline creatinine 1.79 creatinine on admission was 2.04 patient kidney function did improve following admission currently 1.89 will monitor with daily BMP 9. Depression with anxiety ? Patient is on bupropion as well as buspirone and hydroxyzine 10. Mild hyponatremia ? Possibly related to patient underlying malignancy will monitor 11. Severe protein calorie malnutrition Medications at Discharge Home Medications albuterol sulfate 90 mcg/actuation aerosol inhaler (ProAir HFA) 2 puff inhalation Q6H PRN Sob &/Or Wheezing 06/05/18 tamsulosin 0.4 mg capsule 0.4 mg PO QHS 09/14/22 vitamin B complex 1 cap PO DAILY 09/14/22 cholecalciferol (vitamin D3) 25 mcg (1,000 unit) capsule 50 mcg PO DAILY 10/28/22 hydroxyzine HCl 50 mg tablet 50 mg PO Q6H PRN anxiety 03/14/23 ferrous fumarate 324 mg (106 mg iron) tablet 324 mg PO DAILY #90 tabs 03/05/24 albuterol sulfate 2.5 mg/3 mL (0.083 %) solution for nebulization 2.5 mg inhalation 4X/DAY PRN PRN wheezing 04/16/24 bupropion HCl 150 mg 24 hr tablet, extended release 150 mg PO DAILY 04/16/24 buspirone 15 mg tablet 15 mg PO BID 04/16/24 finasteride 5 mg tablet 5 mg PO DAILY 04/16/24 fluticasone propionate 110 mcg/actuation HFA aerosol inhaler 2 puff inhalation BID 04/16/24 apixaban 5 mg (74 tabs) tablets in a dose pack See Rx Instructions PO .COMPLEX #74 tabs 04/18/24 Hospital Course Summary of Care Provided Minutes Spent on Discharge: 35 Medical Records Data Medical Nutrition Assessment Dietitian: Malnutrition Criteria Met Start: 04/17/24 16:03 Freq: Status: Active Protocol: Document 04/17/24 16:03 (Rec: 04/17/24 16:04 [id number]) Nutrition Malnutrition Evidence of Malnutrition Exists Yes Malnutrition (severe): Acute Illness/Injury Evidenced By Suboptimal Energy Intake ( Severe),Weight Loss (Severe) Intake Problem Inadequate Oral Intake Etiology related to poor appetite Signs/Symptoms as evidenced by PO meeting <50 % of estimated nutrition needs x 1.5 weeks. Status Active Problem Clinical Problem Acute Disease or Injury Related Malnutrition Etiology severe related to inadequate oral/energy intake and likely increase energy needs d/t metastasis Signs/Symptoms as evidenced by PO meeting <50 % of estimated nutrition needs and 3% unintentional weight loss x 1.5 week Status Active Problem Unintended Weight Loss Etiology related to inadequate oral intake and possible increase energy needs Signs/Symptoms as evidenced by 3% unintentional weight loss x 1. 5 week, per pt report. Status Active Problem Recommendation Dietitian Recommendations/Changes Continue liberal regular diet d/t poor appetite. Will order 120ml chocolate ensure plus high protein 4x daily with medpass. Will adjust ONS, as needed. Will monitor weight, as available. Reviewed and approved by Cyndy Almodovar, MS, RDN, LD. Weight / BMI Weight Weight: 92.3 kg Body Mass Index (BMI) 26.8 ABG / Lab / Microbiology Data 04/18/24 06:18 04/18/24 06:18 Laboratory: Laboratory Results - last 24 hr 04/16/24 10:49: Diff Path Review Reviewed 04/17/24 04:05: Diff Path Review Reviewed 04/17/24 22:30: APTT 31.0 04/18/24 06:18: WBC 12.3 H, RBC 3.43 L, Hgb 10.1 L, Hct 31.6 L, MCV 92.1, MCH 29.4, MCHC 32.0, RDW Std Deviation 42.9, RDW Coeff of Moni 12.8, Plt Count 156, MPV 10.9, Immature Gran % (Auto) 1.800 H, Neut % (Auto) 65.9, Lymph % (Auto) 13.9 L, [place] % (Auto) 13.0 H, Eos % (Auto) 4.9, Baso % (Auto) 0.5, Absolute Neuts (auto) 8.1 H, Absolute Lymphs (auto) 1.72, Nucleated RBC % 0, Differential Comment SCANNED, Diff Path Review May foll, Sodium 137, Potassium 4.4, Chloride 108 H, Carbon Dioxide 21.0, Anion Gap 8, BUN 31 H, Creatinine 1.73 H, Estim Creat Clear Calc 37.85, Est GFR (MDRD) Af Amer 49 L, Est GFR (MDRD) Non-Af 40 L, BUN/Creatinine Ratio 17.9, Glucose 102, Calcium 8.7, Phosphorus 3.5, Magnesium 2.3 D/C Instructions Discharge Diet: No restrictions Discharge Activity: Return to Normal Activity Call your doctor if you observe: Fever of 101 or Higher, Shortness of breath, Fainting spells and Chest pain Meaningful Use Info Meaningful Use Meaningful Use Diagnoses (Choose all that apply): VTE Ischemic Stroke Statin Dosing Therapy Reference: STATIN DOSE THERAPY REFERENCE: * Patients > 75 years receive moderate or high dose statin therapy. * Patients 75 years or YOUNGER should receive HIGH intensity statin dose unless contraindicated. You will be required to document reason for non-treatment if statin daily dose does not meet guidelines. HIGH DOSE STATIN THERAPY DAILY Atorvastatin > than or = to 40 mg Rosuvastatin > than or = to 20 mg Amlodipine + Atorvastatin > than or = to 2.5/40 mg Ezetimibe + Simvastatin 10/80 mg Simvastatin 80mg VTE Anticoag overlap given w/in hospital stay or rx'd at [place]?: No Pt receive overlap for 5 days?: No Reason overlap not ordered, prescribed, or given for 5 days: Treatment Not Indicated Discharge Plan Admission Admit Date/Time: 04/16/24 14:20 Attending Provider: Krishna Petersen Primary Care Provider: Aga Sylvester NP Consulting Providers: Dawood Donaldson Instructions Patient Instructions: ALFREDO RN Biopsy Liver Dc, ALFREDO RN Procedural Sedation Discharge Orders/Prescriptions Prescriptions: New apixaban 5 mg (74 tabs) tablets,dose pack See Rx Instructions .ROUTE .COMPLEX Qty: 74 0RF Rx Instructions: 10 mg p.o. daily x 7 days and 5 mg p.o. twice daily Continued ProAir HFA 90 mcg/actuation HFA aerosol inhaler 2 puff INHALATION Q6H PRN (Reason: Sob &/Or Wheezing) tamsulosin 0.4 mg capsule 0.4 mg PO QHS vitamin B complex Capsule 1 cap PO DAILY cholecalciferol (vitamin D3) 25 mcg (1,000 unit) capsule 50 mcg PO DAILY hydroxyzine HCl 50 mg tablet 50 mg PO Q6H PRN (Reason: anxiety) Patient Comments: take 1 tablet by mouth four times a day if needed for anxiety ferrous fumarate 324 mg (106 mg iron) tablet 324 mg PO DAILY Qty: 90 3RF finasteride 5 mg tablet 5 mg PO DAILY fluticasone propionate 110 mcg/actuation HFA aerosol inhaler 2 puff INHALATION BID buspirone 15 mg tablet 15 mg PO BID bupropion HCl 150 mg tablet extended release 24 hr 150 mg PO DAILY albuterol sulfate 2.5 mg /3 mL (0.083 %) solution for nebulization 2.5 mg inhalation 4X/DAY PRN PRN (Reason: wheezing) Referrals / Follow Up: Kiko Marks MD [Med Staff - Active Staff] - Within 1 Week Aga Sylvester AIR HOIST OPERATOR, AIR HOIST OPERATOR-C [Primary Care Provider] - Within 2 Weeks Disposition Disposition (needs filled in before D/C Order can be placed): Home, Self Care Charges/Coding Visit Charges Inpatient E&M: 09694 Disch Hosp >30min
--- NOTE | 2024-04-18 11:50 | CASEMGMT ---
Patient has order for discharge. Patient is discharging on Eliquis, copay is $46. RN CM in to discuss needs at discharge, and daughter at bedside. RN CM updated patient regarding copay and states he can afford cost. Patient denies needs or help at discharge. Patient had no further questions or concerns.
[2024-04-18 17:07] LABS: Carbohydrate Ag 19-9 2261 77249 U/mL (0-35)
[2024-04-19 14:50] LABS: Pathologist Review Reviewed
== END 2024-04-18 12:16 | disposition home or self-care (01) | DRG 435 ==
LOC: ED 12:30 → PCU 14:10
PROVIDERS: Emergency Provider Emergency Medicine; PCP Nurse Practitioner Primary Care; Visit Provider Internal Medicine
DX: C25.9 Malignant neoplasm of pancreas, unspecified (principal); I26.99 Other pulmonary embolism without acute cor pulmonale; E43 Unspecified severe protein-calorie malnutrition; I21.A1 Myocardial infarction type 2; N13.8 Other obstructive and reflux uropathy; C78.7 Secondary malignant neoplasm of liver and intrahepatic bile duct; E87.1 Hypo-osmolality and hyponatremia; D63.8 Anemia in other chronic diseases classified elsewhere; J44.9 Chronic obstructive pulmonary disease, unspecified; N18.32 Chronic kidney disease, stage 3b; I12.9 Hypertensive chronic kidney disease with stage 1 through stage 4 chronic kidney disease, or unspecified chronic kidney disease; F41.8 Other specified anxiety disorders; Z87.891 Personal history of nicotine dependence; N40.1 Benign prostatic hyperplasia with lower urinary tract symptoms; Z79.899 Other long term (current) drug therapy; Z98.41 Cataract extraction status, right eye; Z98.42 Cataract extraction status, left eye; Z90.49 Acquired absence of other specified parts of digestive tract; Z96.643 Presence of artificial hip joint, bilateral; Z96.653 Presence of artificial knee joint, bilateral; R79.89 Other specified abnormal findings of blood chemistry; Z68.26 Body mass index [BMI] 26.0-26.9, adult
CPT/HCPCS: 36415; 71045; 71275; 74177; 77012; 80048; 80053; 80076; 82378; 83690; 83735; 83880; 84100; 84484; 85025; 85610; 85730; 86301; 88172; 88305; 88307; 88313; 88341; 88342; 93005; 93306; 94640; 97802; 99285; J7030; Q9957; Q9967; A4216; C8929